=== PATIENT | female | born 1985 | race Two or more races ===

== ENCOUNTER → 2024-07-26 | Outpatient (CLI) | payer BC, SELFPAY ==
[2024-07-26 12:41] LABS: Beta HCG,Quantitative 35299 mIU/mL (<5.0)
[2024-08-06 07:00] LABS: Progesterone,LC/MS* 35.2 ng/mL
== END | disposition home or self-care (01) ==
PROVIDERS: PCP Family Medicine; Referring Provider Nurse Practitioner Family; Visit Provider Nurse Practitioner Family
DX: Z32.01 Encounter for pregnancy test, result positive (principal)
CPT/HCPCS: 36415; 84144; 84702

== ENCOUNTER → 2024-08-08 | Outpatient (CLI) | payer BC, SELFPAY ==
[2024-08-08 12:18] LABS: HCG Titer if Positive Positive
[2024-08-08 13:30] LABS: Beta HCG,Quantitative 97177 mIU/mL (<5.0)
[2024-08-21 06:38] LABS: Progesterone,LC/MS* 61.7 ng/mL
== END | disposition home or self-care (01) ==
LOC: COPL 11:18
PROVIDERS: PCP Nurse Practitioner Family; Referring Provider Nurse Practitioner Family; Visit Provider Nurse Practitioner Family
DX: Z32.01 Encounter for pregnancy test, result positive (principal)
CPT/HCPCS: 36415; 84144; 84702; 84703

== ENCOUNTER → 2024-08-10 | Outpatient (CLI) | payer BC, SELFPAY ==
[2024-08-10 12:12] LABS: HCG Titer if Positive Positive
[2024-08-10 13:01] LABS: Beta HCG,Quantitative 101773 mIU/mL (<5.0)
[2024-08-28 06:40] LABS: Progesterone,LC/MS* 42.1 ng/mL
== END | disposition home or self-care (01) ==
LOC: COPL 11:18
PROVIDERS: PCP Nurse Practitioner Family; Referring Provider Nurse Practitioner Family; Visit Provider Nurse Practitioner Family
DX: Z32.01 Encounter for pregnancy test, result positive (principal)
CPT/HCPCS: 36415; 84144; 84702; 84703

== ENCOUNTER 2024-08-20 11:16 | Outpatient (AMB) | payer BC, SELFPAY ==
[2024-08-20 11:23] VITALS: BP 134/87; PULSE 87; RESP 16; TEMP 36.3; O2SAT 97; BMI 40.2
--- NOTE | 2024-08-20 11:23 | AMB.OBINITIA ---
Vital Signs 08/20/24 11:23 Height 1.52 m Height Method Stated Weight 93.497 kg Weight Measurement Method Standing Scale BMI 40.2 BP 134/87 H Blood Pressure Source Automatic Cuff Blood Pressure Location Left Upper Arm Position Sitting Respiration 16 Pulse 87 Pulse Source Monitor Temp 97.4 F Temp Source Oral Pulse Oximetry (%) 97 Oxygen Delivery Method Room Air Allergies/Home Meds Allergies & Medications Allergies No Known Allergies Allergy (Verified 08/20/24 11:24) Medication Reconciliation Unobtainable 08/20/24 [History Confirmed 08/20/24] Intake Visit Data Collection New Patient or Established: Established Patient (seen at [facility] within 3 years) Reason for Visit:: IVF establish care Seen by Clinical Staff ONLY (RN/MA): No Resolution Expert Required: No Do You Feel Safe at Home: Yes Authorities Contacted: N/A PCP or OBGYN visit in last 3 months: Yes Hx Now: Yes Are you currently on any form of Control: No Last menstrual period: 06/09/25 Pain Present Currently: No Pain Scale Used: [place]/Numerical Pain scale:: 0 Smoking Status Smoking Status: Never smoker Questionnaires Covid-19 Vaccine Questionnaire Has patient been vacinated for Covid-19 Have you been vacinated for Covid-19: Yes PHQ-9 PHQ-2 Over the last 2 weeks, how often have you been bothered by any of the following problems? 1. Little interest or pleasure in doing things: not at all 2. Feeling down, depressed, or hopeless: not at all Total score: 0 PHQ-9 3. Trouble falling or staying asleep, or sleeping too much: Not at all 4. Feeling tired or having little energy: Not at all 5. Poor appetite or overeating: Not at all 6. Feeling bad about yourself - or that you are a failure or have let yourself or your family down: Not at all 7. Trouble concentrating on things, such as reading the newspaper or watching television: Not at all 8. Moving or speaking so slowly that other people could have noticed? - Or the opposite - being so fidgety or restless that you have been moving around a lot more than usual: not at all 9. Thoughts that you would be better off or of hurting yourself in some way: Not at all Total score: 0 Source: Developed by Drs. Az Melara, Ankita Wheeler, William Alves and colleagues, with an educational robert from [email or web address]. Depression screen completed yes Social History Living Situation History Lives With: Family Housing: House Tobacco History Smoking Status: Never smoker Second Hand Smoke Exposure: No Alcohol History Alcohol Intake: Former Alcohol Intake Frequency: holidays/special occasions only Substance Use History Substance Use: no Domestic Abuse History Do You Feel Safe at Home: Yes Past Medical History Past Medical History Have you ever been diagnosed with any of the following: Neurological Problems Cerebrovascular Accident (CVA): No Transient Ischemic Attacks (TIA): No Dementia: No Alzheimer's Disease: No Parkinson's Disease: No Brain Tumor: No Meningitis: No Seizures: No Epilepsy: No Guillain-[place] Syndrome: No Cardiology Problems Myocardial Infarction: No Cardiac Arrhythmia: No Hypertension: Yes (Father) Respiratory Problems Asthma: Yes Bronchitis: No Emphysema: No Pneumonia: No Pulmonary Fibrosis: No Tuberculosis: No Hx Cough: No Cough: No Wheezing: No Chest Deformities: No Smoking: No Smoking Cessation Counseling: No Smoking Exposure: No Tobacco Use: No Stomache/Intestinal Problems Liver Cancer: No Hepatitis: No Cirrhosis: No Genital/Urinary Problems Chronic Kidney Disease: No Renal Disease: No Kidney Stones: No Prostate Cancer: Yes (Father ) Reproductive Problems Breast Cancer: Yes (grandmother) Endometriosis: No Fibroids: No Genital Herpes: No Musculoskeletal Problems Muscular Dystrophy: No Myasthenia Gravis: No Marfan's Syndrome: No Bone Cancer: No Arthritis: No Rheumatoid Arthritis: No Osteoporosis: No Head,Eye,Nose,Throat Problems Cataracts: No Glaucoma: No Blind: No Retinal Detachment: No Macular Degeneration: No Chronic Ear Infections: No Deafness: No Eye Prosthesis: No Endocrine Problems Diabetes Mellitus Type 1: No Diabetes Mellitus Type 2: No Blood Problems Anemia: No Leukemia: No Hemophilia: No Thalassemia: No Sickle Cell Disease: No Clotting Problems: No Psychologic Problems Schizophrenia: No Recreational Drug Use: No Bipolar Disorder: No Depression: No Anxiety: No Behavior Problems: No Self-Mutilation: No Attention Deficit Disorder: No Attention Deficit Hyperactivity Disorder: No Depression: No Post Traumatic Stress Disorder: No Eating Disorder: No Other Problems Hospitalization: No Autoimmune Disease: No Down Syndrome: No Cosmetic Surgery: No Surgical History Angioplasty: No Appendectomy: No Bariatric Surgery: No Breast Surgery: No Cancer Surgery: No TAHBSO-Total Abdominal Hysterectomy: No Thyroidectomy: No Ureter Stent: No History of Present Illness HPI Sahra Stuart presents for care. Patient was seen in the emergency room on 07-26-2024, at approximately 6 weeks gestation[place] [address], and ultrasound showed a single intrauterine gestation of approximately 7 weeks, with a subchorionic hemorrhage and a right ovarian corpus luteum cyst. Repeat serum hCG after the visit on 07-26-2024 was 21937. On 08-06-2024, progesterone level was 35.2 mg/mL. Ultrasound on 07-24-2024 showed the uterus measuring 6.2 x 5.8 x 5.4 cm, mean gestational sac diameter of 20.5 mm corresponding to 7 weeks, CRL measured 3.8 mm corresponding to 6 weeks, heart rate 125 bpm. Right ovary was 3.7 x 2.4 x 1.8 cm with a 2 cm corpus luteum cyst. Left ovary was 2.9 x 2.6 x 2.3 cm. Estimated gestation today is 9 weeks and 6 days, with an estimated due date of 03-19-2025. Patient reports spotting has significantly slowed down in the last four days, only occurring with bowel movements. No cramping unless needing to use the restroom. No morning sickness, but occasional nausea since switching from progesterone injections to pills. IVF was done in [place]. Last week's ultrasound showed 9 weeks gestation, with heart rate of 169 bpm. Patient is currently taking folic acid and baby aspirin. Surgical History - IVF (In Vitro Fertilization) performed in [place] Medications and Supplements - folic acid - Baby aspirin - Progesterone (previously injections, now pills) Social History - Marital status: Patient has a (mentioned in plan for next visit) - Family planning: Undergoing IVF treatment (performed in [place]) OB Initial Visit Menstrual History Menstrual reliability: definite Flow: normal Menstrual regularity: regular Monthly: Yes Age at menarche: 15 On control pills at conception: No Date of positive home test: 07/02/24 Associated symptoms (LMP): Reports nausea and other (spotting) OB History : 1 Para: 0 Hx # Pregnancies: 0 Hx Total # of Abortions (Spontaneous & Elective): 0 # of Living Children: 0 Infection History & Risk Evaluation History of STDs: none Genetic Screening & History Genetic Screening/Teratology Counseling - Includes patient, baby's father, or anyone in either family with: 1. Patient's age 35 years or older as of estimated date of delivery: Yes 2. Thalassemia (Ukrainian, Malagasy, Mediterranean, or Background); MCV less than 80: No 3. Neural Tube Defect (Meningomyelocele, Spina Bifida, or Anencephaly): No 4. Congenital Heart Defect: No 5. Down Syndrome: No 6. Serg-Sachs (Ashkenazi Mu-Ism, Cajun, Mongolian [place]): No 7. Hong Disease (Ashkenazi Mu-Ism): No 8. Familial Dysautonomia (Ashkenazi Mu-Ism): No 9. Sickle Cell Disease or Trait (): No 10. Hemophilia or other blood disorders: No 11. Muscular Dystrophy: No 12. Cystic Fibrosis: No 13. [place]'s Chorea: No 14. Mental Retardation/Autism: No 15. Other inherited genetic or chromosomal disorder: No 16. Maternal Metabolic Disorder (EG,TYPE 1 Diabetes, PKU): No 17. Patient or baby's father had a child with defects not listed above: No 18. Recurrent loss or a stillbirth: No 19. Medications (including supplements, vitamins, herbs or otc drugs)/illicit/recreational drugs/alcohol since last menstrual period: No 20. Any other: No Infection History 1. Live with someone with TB or exposed to TB: No 2. Rash or viral illness since last menstrual period: No 3. Hepatitis B,C: No Other (see comments) Source: [employer] Review of Systems Review of Systems Systems Reviewed: All systems reviewed, normal except as documented Gastrointestinal Gastrointestinal: Reports nausea Exam General Limitations: no limitations General Appearance: alert, in no apparent distress, comfortable, cooperative, healthy appearing, well developed and well groomed Head Head exam: atraumatic, normocephalic and normal inspection Neck Neck exam: Present normal inspection, full ROM and trachea midline Chest Chest inspection: Present normal inspection and symmetric chest wall rise Abdominal Abdominal exam: Present soft and normal bowel sounds Extremities Extremities exam: Present normal inspection and full ROM Back Back exam: Present normal inspection and full ROM Psych Psychiatric exam: Present normal affect and normal mood Skin Skin exam: Present warm, dry, intact and normal color Assessment & Plan Diagnosis / Problem List (1) conceived through in vitro fertilization: Status: Acute Plan: Laboratory, Imaging, and Diagnostic Test Results - Serum hCG on 07-26-2024: 22751 - Repeat serum hCG after 07-26-2024 visit: 98980 - Progesterone level on 08-06-2024: 35.2 mg/mL - Ultrasound on 07-24-2024: - Uterus measuring 6.2 x 5.8 x 5.4 cm - Mean gestational sac diameter: 20.5 mm (corresponding to 7 weeks) - [place]-rump length (CRL): 3.8 mm (corresponding to 6 weeks) - heart rate: 125 bpm - Right ovary: 3.7 x 2.4 x 1.8 cm with a 2 cm corpus luteum cyst - Left ovary: 2.9 x 2.6 x 2.3 cm - Transvaginal ultrasound was consistent with above findings - Ultrasound at 9 weeks gestation: - heart rate: 169 bpm Assessment and Plan: Intrauterine Patient is a 9 weeks and 6 days with estimated due date of 03-19-2025. IVF conceived in [place]. Initial ER visit at 6 weeks gestation [place] [address], [place] [address] on repeat. Ultrasound at 7 weeks revealed single intrauterine gestation with subchorionic hemorrhage and right ovarian corpus luteum cyst. heart rate was 125 bpm at 7 weeks, increasing to 169 bpm at 9 weeks. Progesterone level was 35.2 mg/mL at 8 weeks. Patient reports decreased spotting, occurring only with bowel movements, and no cramping. Occasional nausea noted since switching from progesterone injections to pills. - Order full panel including genetic testing and gender determination (patient prefers gender revealed to someone else) - Continue folic acid and baby aspirin until delivery - Schedule 4-week follow-up appointment - Schedule 3-week follow-up appointment with ultrasound for patient's - Patient to bring copies of IVF ultrasounds at next visit for scanning Subchorionic hemorrhage Subchorionic hemorrhage was identified on initial ultrasound at 7 weeks gestation. Patient reports significant decrease in spotting over the past four days, now only occurring with bowel movements. No associated cramping reported unless needing to use the restroom. - Continue monitoring symptoms - Reassess at follow-up appointments Additional Plan Follow Up: 2 Weeks Office Procedures OB Clinic LOC & Office Proc's Nursing/Assessment Patient Status: Established Patient OB Clinic Nursing Assessment: Medication Reconciliation, Update PMH in EMR and Vital Signs OB Clinic Coordination of Care: AMA, Complex Care and Chronic Disease 1-5, Consent,records obtained, informed consent, Education Simp Pt/Fam, Lab and Imaging orders, Results/Orders obtained and Staff clarify orders Special Needs: Heart tones Established Patient Charge Established Patient Point Assignment: 155 Established Patient Point Charge: EP Level 4 (120-155)
== END 2024-08-20 13:53 | disposition home or self-care (01) ==
LOC: HODSOBC 11:16
PROVIDERS: PCP Nurse Practitioner Family; Referring Provider Nurse Practitioner Family; Supervising Provider Obstetrics & Gynecology; Visit Provider Obstetrics & Gynecology
DX: O26.91 Pregnancy related conditions, unspecified, first trimester (principal); Z3A.09 9 weeks gestation of pregnancy
CPT/HCPCS: 99214; G0463

== ENCOUNTER 2024-09-13 15:30 | Outpatient (AMB) | payer BC, SELFPAY ==
--- NOTE | 2024-09-13 15:47 | AMB.OBVISIT ---
Vital Signs 09/13/24 15:53 Height 1.52 m Height Method Stated Weight 91.399 kg Weight Measurement Method Standing Scale BMI 39.5 BP 129/83 Blood Pressure Source Automatic Cuff Blood Pressure Location Left Upper Arm Position Sitting Respiration 16 Pulse 105 H Pulse Source Monitor Temp 96.3 F L Temp Source Oral Pulse Oximetry (%) 98 Oxygen Delivery Method Room Air Allergies/Home Meds Allergies & Medications Allergies No Known Allergies Allergy (Verified 09/13/24 15:55) Medication Reconciliation Unobtainable 08/20/24 [History Confirmed 09/13/24] Intake Visit Data Collection New Patient or Established: Established Patient (seen at [facility] within 3 years) Reason for Visit:: OBC Seen by Clinical Staff ONLY (RN/MA): No Certified Pharmacist Assistant Required: No Do You Feel Safe at Home: Yes Authorities Contacted: N/A PCP or OBGYN visit in last 3 months: Yes Hx Now: Yes Are you currently on any form of Control: No Pain Present Currently: No Pain Scale Used: [place]/Numerical Pain scale:: 0 Smoking Status Smoking Status: Never smoker Questionnaires Covid-19 Vaccine Questionnaire Has patient been vacinated for Covid-19 Have you been vacinated for Covid-19: Yes PHQ-9 PHQ-2 Over the last 2 weeks, how often have you been bothered by any of the following problems? 1. Little interest or pleasure in doing things: not at all 2. Feeling down, depressed, or hopeless: not at all Total score: 0 PHQ-9 3. Trouble falling or staying asleep, or sleeping too much: Not at all 4. Feeling tired or having little energy: Not at all 5. Poor appetite or overeating: Not at all 6. Feeling bad about yourself - or that you are a failure or have let yourself or your family down: Not at all 7. Trouble concentrating on things, such as reading the newspaper or watching television: Not at all 8. Moving or speaking so slowly that other people could have noticed? - Or the opposite - being so fidgety or restless that you have been moving around a lot more than usual: not at all 9. Thoughts that you would be better off or of hurting yourself in some way: Not at all Total score: 0 If you checked off any problems, how difficult have these problems made it for you to do your work, take care of things at home, or get along with other people?: not difficult at all Source: Developed by Drs. Az Melara, Ankita Wheeler, William Alves and colleagues, with an educational robert from [employer]. Depression screen completed yes Social History Living Situation History Lives With: Family Housing: House Tobacco History Smoking Status: Never smoker Second Hand Smoke Exposure: No Alcohol History Alcohol Intake: Former Alcohol Intake Frequency: holidays/special occasions only Substance Use History Substance Use: no Domestic Abuse History Do You Feel Safe at Home: Yes Past Medical History Past Medical History Have you ever been diagnosed with any of the following: Neurological Problems Cerebrovascular Accident (CVA): No Transient Ischemic Attacks (TIA): No Dementia: No Alzheimer's Disease: No Parkinson's Disease: No Brain Tumor: No Meningitis: No Seizures: No Epilepsy: No Guillain-[place] Syndrome: No Cardiology Problems Myocardial Infarction: No Cardiac Arrhythmia: No Hypertension: Yes (Father) Respiratory Problems Asthma: Yes Bronchitis: No Emphysema: No Pneumonia: No Pulmonary Fibrosis: No Tuberculosis: No Hx Cough: No Cough: No Wheezing: No Chest Deformities: No Smoking: No Smoking Cessation Counseling: No Smoking Exposure: No Tobacco Use: No Stomache/Intestinal Problems Liver Cancer: No Hepatitis: No Cirrhosis: No Genital/Urinary Problems Renal Disease: No Kidney Stones: No Prostate Cancer: Yes (Father ) Reproductive Problems Breast Cancer: Yes (grandmother) Endometriosis: No Fibroids: No Genital Herpes: No Musculoskeletal Problems Muscular Dystrophy: No Myasthenia Gravis: No Marfan's Syndrome: No Bone Cancer: No Arthritis: No Rheumatoid Arthritis: No Osteoporosis: No Head,Eye,Nose,Throat Problems Cataracts: No Glaucoma: No Blind: No Retinal Detachment: No Macular Degeneration: No Chronic Ear Infections: No Deafness: No Eye Prosthesis: No Endocrine Problems Diabetes Mellitus Type 1: No Diabetes Mellitus Type 2: No Blood Problems Anemia: No Leukemia: No Hemophilia: No Thalassemia: No Sickle Cell Disease: No Clotting Problems: No Psychologic Problems Schizophrenia: No Recreational Drug Use: No Bipolar Disorder: No Depression: No Anxiety: No Behavior Problems: No Self-Mutilation: No Attention Deficit Disorder: No Attention Deficit Hyperactivity Disorder: No Depression: No Post Traumatic Stress Disorder: No Eating Disorder: No Other Problems Hospitalization: No Down Syndrome: No Cosmetic Surgery: No Surgical History Angioplasty: No Appendectomy: No Bariatric Surgery: No Breast Surgery: No Cancer Surgery: No TAHBSO-Total Abdominal Hysterectomy: No Thyroidectomy: No Ureter Stent: No History of Present Illness HPI Narrative The patient is and reports that her subchorionic hemorrhage has resolved. She previously underwent chromosome testing, which was reported as normal. The patient mentions difficulty staying hydrated while driving due to limited restroom access. She also notes that she had initially gone to the wrong [facility] location for blood work, where there was an issue with coding that was resolved over the phone. No CTX/LOF/VB, reports good FM+ Review of Systems Review of Systems Systems Reviewed: All systems reviewed, normal except as documented Visit KEVIN Calculator Estimated Delivery Date Method Current WG Current Estimate 03/16/25 Ultrasound #2 14w 6d Other Estimates 03/12/25 Ultrasound #1 15w 3d Initial Weight: Not Recorded Date <del>?</del> EGA Weight Edema CTX Effacement BP Fundal ht Pres Dilation Effacement Station Visit Note Alb Glu FHR Mov 09/13/24 <del>?</del> 13w 5d 91.399 kg 129/83 OB New visit. IVF . Labs pending 175 active Exam General Limitations: no limitations General Appearance: alert, in no apparent distress, comfortable, cooperative, healthy appearing, well developed and well groomed Chest Chest inspection: Present normal inspection and symmetric chest wall rise Psych Psychiatric exam: Present normal affect and normal mood Skin Skin exam: Present warm, dry, intact and normal color Assessment & Plan Diagnosis / Problem List (1) Advanced maternal age, primigravida: Status: Acute (2) conceived through in vitro fertilization: Status: Acute Plan Patient is in her second trimester of . Previous subchorionic hemorrhage has resolved. Recent NIPT (non-invasive testing) results were normal. Ultrasound showed a normal, round gestational sac with good heart rate. Placenta and amniotic fluid appear normal. - Continue vitamins and aspirin - Discontinue folic acid supplementation at 20 weeks gestation - Schedule detailed anatomy ultrasound. - Complete blood panel through [employer] [facility] - Follow-up appointment in 4 weeks Office Procedures OB Clinic LOC & Office Proc's Nursing/Assessment Patient Status: Established Patient OB Clinic Nursing Assessment: BP Monitoring, Medication Reconciliation, Update PMH in EMR and Vital Signs OB Clinic Coordination of Care: Consent,records obtained, informed consent, Education Simp Pt/Fam, Lab and Imaging orders and Staff clarify orders Special Needs: Heart tones Established Patient Charge Established Patient Point Assignment: 120 Established Patient Point Charge: EP Level 4 (120-155)
[2024-09-13 15:53] VITALS: BP 129/83; PULSE 105; RESP 16; TEMP 35.7; O2SAT 98; BMI 39.5
== END 2024-09-13 16:04 | disposition home or self-care (01) ==
LOC: HODSOBC 15:30
PROVIDERS: PCP Obstetrics & Gynecology; Referring Provider Obstetrics & Gynecology; Supervising Provider Obstetrics & Gynecology; Visit Provider Obstetrics & Gynecology
DX: O09.511 Supervision of elderly primigravida, first trimester (principal); O09.811 Supervision of pregnancy resulting from assisted reproductive technology, first trimester; Z3A.13 13 weeks gestation of pregnancy
CPT/HCPCS: 99214; G0463

== ENCOUNTER 2024-10-15 09:51 | Outpatient (AMB) | payer BC, SELFPAY ==
[2024-10-15 10:09] VITALS: BP 126/88; PULSE 88; RESP 18; TEMP 36.2; O2SAT 98; BMI 40.5
--- NOTE | 2024-10-15 10:09 | OBCLNT_ITS ---
Vital Signs 10/15/24 10:09 Height 1.52 m Height Method Stated Weight 93.667 kg Weight Measurement Method Standing Scale BMI 40.5 BP 126/88 H Blood Pressure Source Automatic Cuff Blood Pressure Location Left Upper Arm Position Sitting Respiration 18 Pulse 88 Pulse Source Monitor Temp 97.2 F Temp Source Oral Pulse Oximetry (%) 98 Oxygen Delivery Method Room Air Allergies/Home Meds Allergies & Medications Allergies No Known Allergies Allergy (Verified 10/15/24 10:10) Medication Reconciliation Unobtainable 08/20/24 [History Confirmed 10/15/24] Intake Visit Data Collection New Patient or Established: Established Patient (seen at [facility] within 3 years) Reason for Visit:: - care visit at 19 weeks gestation - Sciatic nerve pain on right side for the past week - Numbness and current passing sensation in leg when getting off truck - Occasional numbness in fingers Seen by Clinical Staff ONLY (RN/MA): No Client Success Manager Required: No Do You Feel Safe at Home: Yes Authorities Contacted: N/A PCP or OBGYN visit in last 3 months: Yes Date of Last PCP or OBGYN visit: 09/13/24 Hx Now: No Are you currently on any form of Control: No Pain Present Currently: No Pain Scale Used: [place]/Numerical Pain scale:: 0 Smoking Status Smoking Status: Never smoker Questionnaires Covid-19 Vaccine Questionnaire Has patient been vacinated for Covid-19 Have you been vacinated for Covid-19: Yes PHQ-9 PHQ-2 Over the last 2 weeks, how often have you been bothered by any of the following problems? 1. Little interest or pleasure in doing things: not at all 2. Feeling down, depressed, or hopeless: not at all Total score: 0 PHQ-9 3. Trouble falling or staying asleep, or sleeping too much: Not at all 4. Feeling tired or having little energy: Not at all 5. Poor appetite or overeating: Not at all 6. Feeling bad about yourself - or that you are a failure or have let yourself or your family down: Not at all 7. Trouble concentrating on things, such as reading the newspaper or watching television: Not at all 8. Moving or speaking so slowly that other people could have noticed? - Or the opposite - being so fidgety or restless that you have been moving around a lot more than usual: not at all 9. Thoughts that you would be better off or of hurting yourself in some way: Not at all Total score: 0 If you checked off any problems, how difficult have these problems made it for you to do your work, take care of things at home, or get along with other people?: not difficult at all Source: Developed by Drs. Az Melara, Ankita Wheeler, William Alves and colleagues, with an educational robert from [employer]. Depression screen completed yes Social History Living Situation History Lives With: Family Housing: House Tobacco History Smoking Status: Never smoker Second Hand Smoke Exposure: No Alcohol History Alcohol Intake: Former Alcohol Intake Frequency: holidays/special occasions only Substance Use History Substance Use: no Domestic Abuse History Do You Feel Safe at Home: Yes Past Medical History Past Medical History Have you ever been diagnosed with any of the following: Neurological Problems Cerebrovascular Accident (CVA): No Transient Ischemic Attacks (TIA): No Dementia: No Alzheimer's Disease: No Parkinson's Disease: No Brain Tumor: No Meningitis: No Seizures: No Epilepsy: No Guillain-Buskirk Syndrome: No Cardiology Problems Myocardial Infarction: No Cardiac Arrhythmia: No Hypertension: Yes (Father) Respiratory Problems Asthma: Yes Bronchitis: No Emphysema: No Pneumonia: No Pulmonary Fibrosis: No Tuberculosis: No Hx Cough: No Cough: No Wheezing: No Chest Deformities: No Smoking: No Smoking Cessation Counseling: No Smoking Exposure: No Tobacco Use: No Stomache/Intestinal Problems Liver Cancer: No Hepatitis: No Cirrhosis: No Genital/Urinary Problems Renal Disease: No Kidney Stones: No Reproductive Problems Breast Cancer: Yes (grandmother) Endometriosis: No Fibroids: No Genital Herpes: No Musculoskeletal Problems Muscular Dystrophy: No Myasthenia Gravis: No Marfan's Syndrome: No Bone Cancer: No Arthritis: No Rheumatoid Arthritis: No Osteoporosis: No Head,Eye,Nose,Throat Problems Cataracts: No Glaucoma: No Blind: No Retinal Detachment: No Macular Degeneration: No Chronic Ear Infections: No Deafness: No Eye Prosthesis: No Endocrine Problems Diabetes Mellitus Type 1: No Diabetes Mellitus Type 2: No Blood Problems Anemia: No Leukemia: No Hemophilia: No Thalassemia: No Sickle Cell Disease: No Clotting Problems: No Psychologic Problems Schizophrenia: No Recreational Drug Use: No Bipolar Disorder: No Depression: No Anxiety: No Behavior Problems: No Self-Mutilation: No Attention Deficit Disorder: No Attention Deficit Hyperactivity Disorder: No Depression: No Post Traumatic Stress Disorder: No Eating Disorder: No Other Problems Hospitalization: No Down Syndrome: No Cosmetic Surgery: No Surgical History Angioplasty: No Appendectomy: No Bariatric Surgery: No Breast Surgery: No Cancer Surgery: No TAHBSO-Total Abdominal Hysterectomy: No Thyroidectomy: No Ureter Stent: No History of Present Illness HPI Narrative - Martha Stuart is a 39-year-old presenting for care at 19 weeks gestation. This was conceived through in vitro fertilization (IV F) in [place]. - Patient reports fatigue. 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 - She denies any other symptoms or complications related to the . No contractions/ LOF/VB, reports good FM No BELTRE/VC/RUQ/Epig pain Care OB Visit Log OB Flowsheet Initial Weight: Not Recorded Date -?-?-?-?-?-?-?-?-?-?-?-?- EGA Weight Edema CTX Effacement BP Fundal ht Pres Dilation Effacement Station Visit Note Alb Glu FHR Mov 09/13/24 -?-?-?-?-?-?-?-?-?-?-?-?- 13w 5d 91.399 kg 129/83 OB N ew visit. IVF . Labs pending 175 active 10/15/24 -?-?-?-?-?-?-?-?-?-?-?-?- 18w 2d 93.667 kg 126/88 April Stuart, 39 y/o at 19w0d gestation following IVF in [place], presents for routine visit. Reports right- sided sciatica with numbness and ?electric? 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 Subchorionic hemorrhage from early now resolved. Denies CTX/LOF/VB; reports good FM. FHR 138 bpm. Blood type A+, Ab screen negative, Hgb 11.8, plt 311,000. Rubella immune, OB labs normal. Plan: Follow-up in 4 weeks at 24w for GT T and review anatomy scan results (pending call from [facility]). Reassurance and supportive care for sciatica and neck symptoms: rest, neck ROM, warm/cold compress. Continue routine care and safety counseling. 1 45 active KEVIN Calculator Estimated Delivery Date Method Current WG Current Estimate 03/16/25 Ultrasound #2 18w 3d Other Estimates 03/12/25 Ultrasound #1 19w 0d Exam General General Appearance: alert, in no apparent distress and healthy appearing Head Head exam: atraumatic Neck Neck exam: Present normal inspection and trachea midline Chest Chest inspection: Present normal inspection and symmetric chest wall rise External exam: Present normal external exam; Absent tenderness Neuro Neurological exam: Present oriented X3 Psych Psychiatric exam: Present normal affect and normal mood Assessment & Plan Diagnosis / Problem List (1) Advanced maternal age, primigravida: Status: Acute (2) conceived through in vitro fertilization: Status: Acute Plan Problem List - , 19 weeks gestation - Sciatica - Cervical radiculopathy - Round ligament pain Assessment - Intrauterine at 19 weeks gestation - History of subchorionic hemorrhage, now resolved - conceived through IVF - Sciatic nerve pain on right side - Cervical spine-related numbness and tingling in fingers - Round ligament pain - heart rate 138 bpm - Blood type A positive - Negative antibody screen - Hemoglobin 11.8 g/dL - Platelets 311,000/?L - Negative RPR, Hepatitis B, and HIV tests - Rubella immune - Normal OB panel results Plan - Return for follow-up appointment in 4 weeks at 24 weeks gestation - Order glucose tolerance test (diabetes test) for next visit - Await call from [facility] for Level 2 Anatomy Ultrasound (detailed ultrasound) - For cervical spine discomfort: perform neck rotation exercises and apply warm/cold compresses - For sciatic nerve pain: rest when symptoms occur - Continue current care regimen Educated the patient on labor signs, including regular contractions, lower back pain, and changes in vaginal discharge. Advised avoiding heavy lifting and getting adequate rest. Instructed to contact the office immediately if any signs occur. Discussed the importance of a balanced diet rich in folic acid, iron, and calcium, and provided a list of recommended and to-avoid foods. Emphasized avoiding high-sugar foods to reduce gestational diabetes risk. Encouraged hydration and frequent, small meals for energy.. Office Procedures OB Clinic LOC & Office Proc's Nursing/Assessment Patient Status: Established Patient OB Clinic Nursing Assessment: Medication Reconciliation, Update PMH in EMR and Vital Signs OB Clinic Coordination of Care: Consent,records obtained, informed consent, Lab and Imaging orders and Staff clarify orders Special Needs: Heart tones Established Patient Charge Established Patient Point Assignment: 90 Established Patient Point Charge: EP Level 3 (80-115)
== END 2024-10-15 10:30 | disposition home or self-care (01) ==
LOC: HODSOBC 09:51
PROVIDERS: PCP Obstetrics & Gynecology; Referring Provider Obstetrics & Gynecology; Supervising Provider Obstetrics & Gynecology; Visit Provider Obstetrics & Gynecology
DX: O09.512 Supervision of elderly primigravida, second trimester (principal); Z3A.18 18 weeks gestation of pregnancy; O09.812 Supervision of pregnancy resulting from assisted reproductive technology, second trimester; O99.352 Diseases of the nervous system complicating pregnancy, second trimester; M54.31 Sciatica, right side; O99.891 Other specified diseases and conditions complicating pregnancy; M54.12 Radiculopathy, cervical region; R10.2 Pelvic and perineal pain
CPT/HCPCS: 99213; G0463

== ENCOUNTER 2024-11-15 13:37 | Outpatient (AMB) | payer BC, SELFPAY ==
[2024-11-15 13:42] VITALS: BP 141/97; PULSE 97; RESP 18; TEMP 36.6; O2SAT 96; BMI 40.9
--- NOTE | 2024-11-15 13:42 | AMB.OBVISIT ---
Vital Signs 11/15/24 13:42 Height 1.52 m Height Method Stated Weight 94.574 kg Weight Measurement Method Standing Scale BMI 40.9 BP 141/97 H Blood Pressure Source Automatic Cuff Blood Pressure Location Right Upper Arm Position Sitting Respiration 18 Pulse 97 Pulse Source Monitor Temp 97.8 F Temp Source Oral Pulse Oximetry (%) 96 Oxygen Delivery Method Room Air Allergies/Home Meds Allergies & Medications Allergies No Known Allergies Allergy (Verified 11/15/24 13:43) Medication Reconciliation Unobtainable 08/20/24 [History Confirmed 11/15/24] Intake Visit Data Collection New Patient or Established: Established Patient (seen at [facility] within 3 years) Reason for Visit:: CARE Seen by Clinical Staff ONLY (RN/MA): No Building Repair Maintenance Supervisor Required: No Do You Feel Safe at Home: Yes Authorities Contacted: N/A PCP or OBGYN visit in last 3 months: Yes Hx Now: Yes Are you currently on any form of Control: No Pain Present Currently: Yes Pain Location: Arm (BILATERAL) Pain Scale Used: [place]/Numerical Pain scale:: 4 Smoking Status Smoking Status: Never smoker Questionnaires Covid-19 Vaccine Questionnaire Has patient been vacinated for Covid-19 Have you been vacinated for Covid-19: Yes PHQ-9 PHQ-2 Over the last 2 weeks, how often have you been bothered by any of the following problems? 1. Little interest or pleasure in doing things: not at all 2. Feeling down, depressed, or hopeless: not at all Total score: 0 PHQ-9 3. Trouble falling or staying asleep, or sleeping too much: Not at all 4. Feeling tired or having little energy: Not at all 5. Poor appetite or overeating: Not at all 6. Feeling bad about yourself - or that you are a failure or have let yourself or your family down: Not at all 7. Trouble concentrating on things, such as reading the newspaper or watching television: Not at all 8. Moving or speaking so slowly that other people could have noticed? - Or the opposite - being so fidgety or restless that you have been moving around a lot more than usual: not at all 9. Thoughts that you would be better off or of hurting yourself in some way: Not at all Total score: 0 Source: Developed by Drs. Az Melara, Ankita Wheeler, William Alves and colleagues, with an educational robert from [employer]. 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 Patient reports good FM. Denies BELTRE, VC, and epigastric pain. - Martha Stuart is a 39-year-old female, , with a history of IVF , presenting for care at 22 weeks and 5 days gestation. - Patient reports feeling movements - Describes as scratches from inside and like gas in the stomach - Ongoing neck pain and cervical radiculopathy since last visit - Aggravated by driving - Symptoms include: - Difficulty opening and closing hands, especially in the mornings - Pain radiating to shoulder blade on one side, to elbow on the other - Wakes patient up during sleep - Alleviating factors: running hands under hot water in shower - Patient unsure about work plans for remainder of - Considering options for disability leave due to high-risk IVF Care OB Visit Log OB Flowsheet Initial Weight: Not Recorded Date <del>?</del> EGA Weight BP Alb Glu CTX Pres Fundal ht FHR Mov Dilation Station Effacement Hx Notes Visit Note 09/13/24 <del>?</del> 13w 5d 91.399 kg 129/83 175 active OB New visit. IVF . Labs pending 10/15/24 <del>?</del> 18w 2d 93.667 kg 126/88 145 active Martha Stuart, 39 y/o at 19w0d gestation following IVF in [place], presents for routine visit. 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 Subchorionic hemorrhage from early now resolved. Denies CTX/LOF/VB; reports good FM. FHR 138 bpm. Blood type A+, Ab screen negative, Hgb 11.8, plt 311,000. Rubella immune, OB labs normal. Plan: Follow-up in 4 weeks at 24w for GTT and review anatomy scan results (pending call from [facility]). Reassurance and supportive care for sciatica and neck symptoms: rest, neck ROM, warm/cold compress. Continue routine care and safety counseling. 11/15/24 <del>?</del> 22w 5d 94.574 kg 141/97 155 active 39yo @22w5d, IVF, good FM, ongoing cervical radiculopathy with hand/arm pain, FHT 155?160 bpm. Plan: 1hr glucose today, anatomy scan pending insurance, neck exercises, consider disability leave, PT and MRI , f/u in 2 weeks. KEVIN Calculator Estimated Delivery Date Method Current WG Current Estimate 03/16/25 Ultrasound #2 24w 4d Other Estimates 03/12/25 Ultrasound #1 25w 1d Exam General General Appearance: alert, in no apparent distress and healthy appearing Head Head exam: atraumatic Neck Neck exam: Present normal inspection and trachea midline Chest Chest inspection: Present normal inspection and symmetric chest wall rise External exam: Present normal external exam; Absent tenderness Neuro Neurological exam: Present oriented X3 Psych Psychiatric exam: Present normal affect and normal mood Office Procedures OB Clinic LOC & Office Proc's Nursing/Assessment Patient Status: Established Patient OB Clinic Nursing Assessment: Medication Reconciliation, Update PMH in EMR and Vital Signs OB Clinic Coordination of Care: Complex Care and Chronic Disease 1-5, Consent,records obtained, informed consent, Education Simp Pt/Fam, Lab and Imaging orders, Results/Orders obtained and Staff clarify orders Special Needs: Heart tones Established Patient Charge Established Patient Point Assignment: 135 Established Patient Point Charge: EP Level 4 (120-155) Assessment & Plan Diagnosis / Problem List (1) Advanced maternal age, primigravida: Status: Acute (2) conceived through in vitro fertilization: Status: Acute Plan Problem List - , high-risk - Cervical radiculopathy - Spinal cord compression Assessment 39-year-old at 22 weeks 5 days gestation with IVF presenting for routine care. Patient reports movement. Ongoing cervical radiculopathy with bilateral hand and arm pain, worse on the right side extending to the shoulder blade, left side to the elbow. Symptoms are exacerbated by driving and present upon waking. Morning hand stiffness reported, requiring warm water for relief. These symptoms suggest possible spinal cord compression. heart rate noted at 155-160 bpm, which is within normal range. Glucose tolerance test pending. Anatomy scan results still awaited due to insurance communication issues. Plan - Perform glucose test today (patient to fast for at least 8 hours prior) - Schedule anatomy scan (pending insurance approval) - Patient to consider disability leave options due to high-risk IVF - Clinician to complete disability paperwork as needed - Recommend simple neck exercises (shrugs, rotations, extensions) multiple times daily for cervical radiculopathy - Plan for intensive physical therapy and possible MRI after delivery - Follow-up visit in a couple of weeks for ultrasound 1. Progress Reviewed gestational age, growth, and heart rate. Planned frequent visits (every 2 weeks until 36 weeks, then weekly). 2. Instructed patient to monitor movements and report decreases immediately. 3. Testing Counseled on routine third-trimester labs per guidelines. Discussed potential need for ultrasound or monitoring based on risk factors. 4. Preeclampsia Precaution Educated on preeclampsia signs: severe headache, vision changes, right upper quadrant pain, sudden swelling. Advised urgent reporting of symptoms and discussed blood pressure monitoring if high risk. 5. Labor Precautions Reviewed labor signs: regular contractions, pelvic pressure, back pain, bleeding, or fluid leakage. Instructed to seek immediate care for these symptoms. 6. Lifestyle and Delivery Preparation Reinforced vitamins, nutrition, and safe activity. Discussed plan, pain management, and . Advised on labor preparation (e.g., hospital bag) and expectations. 7. Psychosocial Support Assessed emotional well-being and offered resources for mental health or parenting support.
== END 2024-11-15 14:24 | disposition home or self-care (01) ==
LOC: HODSOBC 13:37
PROVIDERS: PCP Obstetrics & Gynecology; Referring Provider Obstetrics & Gynecology; Supervising Provider Obstetrics & Gynecology; Visit Provider Obstetrics & Gynecology
DX: O09.512 Supervision of elderly primigravida, second trimester (principal); O09.812 Supervision of pregnancy resulting from assisted reproductive technology, second trimester; Z3A.22 22 weeks gestation of pregnancy; O09.892 Supervision of other high risk pregnancies, second trimester; O99.891 Other specified diseases and conditions complicating pregnancy; M54.12 Radiculopathy, cervical region; G95.20 Unspecified cord compression
CPT/HCPCS: 99214; G0463

== ENCOUNTER → 2024-11-16 | Outpatient (CLI) | payer BC, SELFPAY ==
[2024-11-16 13:31] LABS: Glucose, Fasting 84 mg/dL (74-106)
[2024-11-16 13:37] LABS: Glucose 1/2 Hour 130 mg/dL (110-170)
[2024-11-16 14:21] LABS: Glucose 1 Hour 177 mg/dL (120-170)
== END | disposition home or self-care (01) ==
PROVIDERS: PCP Nurse Practitioner Family; Referring Provider Obstetrics & Gynecology; Visit Provider Obstetrics & Gynecology
DX: O09.519 Supervision of elderly primigravida, unspecified trimester (principal); O09.819 Supervision of pregnancy resulting from assisted reproductive technology, unspecified trimester
CPT/HCPCS: 36415; 82951

== ENCOUNTER 2024-11-30 13:09 | Outpatient (AMB) | payer BC, SELFPAY ==
--- NOTE | 2024-11-30 13:13 | AMB.OBVISIT ---
Vital Signs 11/30/24 13:14 Height 1.52 m Height Method Measured Weight 94.461 kg Weight Measurement Method Standing Scale BMI 40.8 BP 132/84 H Blood Pressure Source Automatic Cuff Blood Pressure Location Right Upper Arm Position Sitting Respiration 17 Pulse 100 Pulse Source Monitor Temp 97.3 F Temp Source Temporal Artery Scan Pulse Oximetry (%) 96 Oxygen Delivery Method Room Air Allergies/Home Meds Allergies & Medications Allergies No Known Allergies Allergy (Verified 12/18/24 14:41) Medication Reconciliation blood sugar diagnostic (Blood Glucose Test strips) #10 ea 11/30/24 [Rx Confirmed 12/18/24] blood-glucose meter #1 ea 11/30/24 [Rx Confirmed 12/18/24] folic acid 0.8 mg capsule 0.8 mg PO QDAY 11/30/24 [History Confirmed 12/18/24] lancets #100 ea 11/30/24 [Rx Confirmed 12/18/24] vits no.126-ferrous fum 28 mg iron-folic acid 800 mcg tablet (Classic ) tab PO 11/30/24 [History Confirmed 12/18/24] Intake Visit Data Collection New Patient or Established: Established Patient (seen at [facility] within 3 years) Reason for Visit:: OBC Seen by Clinical Staff ONLY (RN/MA): No 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 1. Little interest or pleasure in doing things: not at all 2. Feeling down, depressed, or hopeless: not at all Total score: 0 PHQ-9 3. Trouble falling or staying asleep, or sleeping too much: Not at all 4. Feeling tired or having little energy: Not at all 5. Poor appetite or overeating: Not at all 6. Feeling bad about yourself - or that you are a failure or have let yourself or your family down: Not at all 7. Trouble concentrating on things, such as reading the newspaper or watching television: Not at all 8. Moving or speaking so slowly that other people could have noticed? - Or the opposite - being so fidgety or restless that you have been moving around a lot more than usual: not at all 9. Thoughts that you would be better off or of hurting yourself in some way: Not at all Total score: 0 If you checked off any problems, how difficult have these problems made it for you to do your work, take care of things at home, or get along with other people?: not difficult at all Source: Developed by Drs. Az Melara, Ankita Wheeler, William Alves and colleagues, with an educational robert from [employer]. 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 IVF . Labs pending 10/15/24 <del>?</del> 18w 2d 93.667 kg 126/88 145 active Martha Stuart, 39 y/o at 19w0d gestation following IVF in [place], presents for routine visit. 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 Subchorionic hemorrhage from early now resolved. Denies CTX/LOF/VB; reports good FM. FHR 138 bpm. Blood type A+, Ab screen negative, Hgb 11.8, plt 311,000. Rubella immune, OB labs normal. Plan: Follow-up in 4 weeks at 24w for GTT and review anatomy scan results (pending call from [facility]?s). Reassurance and supportive care for sciatica and neck symptoms: rest, neck ROM, warm/cold compress. Continue routine care and safety counseling. 11/15/24 <del>?</del> 22w 5d 94.574 kg 141/97 155 active 39yo @22w5d, IVF, good FM, ongoing cervical radiculopathy with hand/arm pain, FHT 155?160 bpm. Plan: 1hr glucose today, anatomy scan pending insurance, neck exercises, consider disability leave, PT and MRI , f/u in 2 weeks. 11/30/24 <del>?</del> 24w 6d 94.461 kg 132/84 occasional cephalic 24 142 active at 24w6d via IVF, elevated 1hr GTT 177, likely GDM. Has carpal tunnel, on disability. FHR 142, good FM. Plan: Start home glucose checks (fasting <100, 1hr post-meal <140), supplies to pharmacy. Anatomy scan 12/24, echo 12/31. F/u in 2w for glucose log, 4w for routine care. Printed records per release. 12/18/24 <del>?</del> 27w 3d 95.481 kg 132/90 absent unknown 25 158 active 27w3d here for routine visit. IVF , diet-controlled GDM with BG <100 fasting, occasional postprandial spikes with sweets. No CTX/LOF/VB, reports good FM. FHR 158. Plan: Continue BG monitoring, no meds. Emphasize protein/veggies before carbs, switch to diet soda, walk post meals. U/S 12/24, echo 01/07, f/u after 12/30. Delivery 39w?KEVIN. C/S if breech, otherwise pt to choose mode. KEVIN Calculator Estimated Delivery Date Method Current WG Current Estimate 03/16/25 Ultrasound #2 30w 1d Other Estimates 03/12/25 Ultrasound #1 30w 5d Office Procedures OB Clinic LOC & Office Proc's Nursing/Assessment Patient Status: Established Patient OB Clinic Nursing Assessment: Medication Reconciliation, Update PMH in EMR and Vital Signs OB Clinic Coordination of Care: Complex Care and Chronic Disease 1-5, Education Complex Pt/Fam, Consent,records obtained, informed consent, Lab and Imaging orders and Staff clarify orders Special Needs: Heart tones Established Patient Charge Established Patient Point Assignment: 135 Established Patient Point Charge: EP Level 3 (80-115) Assessment & Plan Diagnosis / Problem List (1) conceived through in vitro fertilization: Status: Acute (2) Supervision of high risk , unspecified, second trimester: Status: Acute (3) Gestational diabetes, diet controlled: Status: Acute
[2024-11-30 13:14] VITALS: BP 132/84; PULSE 100; RESP 17; TEMP 36.3; O2SAT 96; BMI 40.8
== END 2024-11-30 14:54 | disposition home or self-care (01) ==
LOC: HODSOBC 13:09
PROVIDERS: PCP Obstetrics & Gynecology; Referring Provider Obstetrics & Gynecology; Supervising Provider Obstetrics & Gynecology; Visit Provider Obstetrics & Gynecology
DX: O09.522 Supervision of elderly multigravida, second trimester (principal); O09.812 Supervision of pregnancy resulting from assisted reproductive technology, second trimester; O09.892 Supervision of other high risk pregnancies, second trimester; O24.410 Gestational diabetes mellitus in pregnancy, diet controlled; Z3A.24 24 weeks gestation of pregnancy
CPT/HCPCS: 99213; G0463

== ENCOUNTER 2024-12-18 14:17 | Outpatient (AMB) | payer BC, SELFPAY ==
[2024-12-18 14:40] VITALS: BP 132/90; PULSE 100; RESP 18; TEMP 36.5; O2SAT 96; BMI 41.3
--- NOTE | 2024-12-18 14:40 | OBCLNT_ITS ---
Vital Signs 12/18/24 14:40 Height 1.52 m Height Method Stated Weight 95.481 kg Weight Measurement Method Standing Scale BMI 41.3 BP 132/90 H Blood Pressure Source Automatic Cuff Blood Pressure Location Right Upper Arm Position Sitting Respiration 18 Pulse 100 Pulse Source Monitor Temp 97.7 F Temp Source Temporal Artery Scan Pulse Oximetry (%) 96 Oxygen Delivery Method Room Air Allergies/Home Meds Allergies & Medications Allergies No Known Allergies Allergy (Verified 12/18/24 14:41) Medication Reconciliation blood sugar diagnostic (Blood Glucose Test strips) #10 ea 11/30/24 [Rx Confirmed 12/18/24] blood-glucose meter #1 ea 11/30/24 [Rx Confirmed 12/18/24] folic acid 0.8 mg capsule 0.8 mg PO QDAY 11/30/24 [History Confirmed 12/18/24] lancets #100 ea 11/30/24 [Rx Confirmed 12/18/24] vits no.126-ferrous fum 28 mg iron-folic acid 800 mcg tablet (Classic ) tab PO 11/30/24 [History Confirmed 12/18/24] Intake Visit Data Collection New Patient or Established: Established Patient (seen at [facility] within 3 years) Reason for Visit:: OBC Seen by Clinical Staff ONLY (RN/MA): No 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 1. Little interest or pleasure in doing things: not at all 2. Feeling down, depressed, or hopeless: not at all Total score: 0 PHQ-9 3. Trouble falling or staying asleep, or sleeping too much: Not at all 4. Feeling tired or having little energy: Not at all 5. Poor appetite or overeating: Not at all 6. Feeling bad about yourself - or that you are a failure or have let yourself or your family down: Not at all 7. Trouble concentrating on things, such as reading the newspaper or watching television: Not at all 8. Moving or speaking so slowly that other people could have noticed? - Or the opposite - being so fidgety or restless that you have been moving around a lot more than usual: not at all 9. Thoughts that you would be better off or of hurting yourself in some way: Not at all Total score: 0 If you checked off any problems, how difficult have these problems made it for you to do your work, take care of things at home, or get along with other people?: not difficult at all Source: Developed by Drs. Az Melara, Ankita Wheeler, iWlliam Alves and colleagues, with an educational robert from [employer]. 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 No contractions, LOF, VB and reports good FM. Denies BELTRE, VC, and epigastric pain. - Martha Stuart is a 39-year-old female, 1 para 0, at 27 weeks and 3 days gestation presenting for routine care. - Patient was last seen 2 weeks ago and given glucose testing supplies. - She reports blood glucose levels: - Fasting levels have been under 100 mg/dL, except for the first day which was slightly elevated. - Post-prandial levels increased after consuming sweet foods (Sprite, pie). - Morning glucose levels were lower (87-88 mg/dL) when eating only eggs for breakfast. - Denies taking any medications for diabetes management. - Reports regular movement. Care OB Visit Log OB Flowsheet Initial Weight: Not Recorded Date -?-?-?-?-?-?-?-?-?-?-?-?- EGA Weight BP Alb Glu CTX Pres Fundal ht FHR Mov Dilation Station Effacement Hx Notes Visit Note 09/13/24 -?-?-?-?-?-?-?-?-?-?-?-?- 13w 5d 91.399 kg 129/83 175 active OB New visit. IVF . Labs pending 10/15/24 -?-?-?-?-?-?-?-?-?-?-?-?- 18w 2d 93.667 kg 126/88 145 active Martha Stuart, 39 y/o at 19w0d gestation following IVF in [place], presents for routine visit. 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 Subchorionic hemorrhage from early now resolved. Denies CTX/LOF/VB; reports good FM. FHR 138 bpm. Blood type A+, Ab screen negative, Hgb 11.8, plt 311,000. Rubella immune, OB labs normal. Plan: Follow-up in 4 weeks at 24w for GT T and review anatomy scan results (pending call from [facility]?s). Reassurance and supportive care for sciatica and neck symptoms: rest, neck ROM, warm/cold compress. Continue routine care and safety counseling. 11/15/24 -?-?-?-?-?-?-?-?-?-?-?-?- 22w 5d 94.574 kg 141/97 155 active 39yo @22w5d, IVF, good FM, ongoing cervical radiculopathy with hand/arm pain, FHT 155?160 bpm. Plan: 1hr g lucose today, anatomy scan pending insurance, neck exercises, consider disability leave, PT and MRI , f/u in 2 weeks. 12/18/24 -?-?-?-?-?-?-?-?-?-?-?-?- 27w 3d 95.481 kg 132/90 absent unknown 25 158 active 27w3d here for routine visit. IVF , diet-controlled GDM with BG <100 fasting, occasional postprandial spikes with sweets. No CTX/LOF/VB, reports good FM. FHR 158. Plan: Continue BG monitoring, no meds. Emphasize protein/veggies before carbs, switch to diet soda, walk post meals. U/S 12/24, echo 01/07, f/u after 12/30. Delivery 39w?KEVIN. C/S if breech, otherwise pt to choose mode. KEVIN Calculator Estimated Delivery Date Method Current WG Current Estimate 03/16/25 Ultrasound #2 27w 3d Other Estimates 03/12/25 Ultrasound #1 28w 0d Office Procedures OB Clinic LOC & Office Proc's Nursing/Assessment Patient Status: Established Patient OB Clinic Nursing Assessment: Medication Reconciliation, Update PMH in EMR and Vital Signs OB Clinic Coordination of Care: Complex Care and Chronic Disease 1-5, Consent,records obtained, informed consent, Education Simp Pt/Fam and Staff clarify orders Special Needs: Heart tones Established Patient Charge Established Patient Point Assignment: 115 Established Patient Point Charge: EP Level 3 (80-115) Assessment & Plan Diagnosis / Problem List (1) conceived through in vitro fertilization: Status: Acute (2) Advanced maternal age, primigravida: Status: Acute (3) Supervision of high risk , unspecified, second trimester: Status: Acute (4) Gestational diabetes, diet controlled: Status: Acute Plan Problem List - , 27 weeks and 3 days gestation - Gestational diabetes mellitus (diet controlled) - IVF Assessment 39-year-old at 27 weeks and 3 days gestation presenting for routine care. Patient has gestational diabetes managed with diet, currently not on medications. Blood glucose readings show fasting levels under 100 mg/dL, with occasional postprandial spikes associated with high-sugar foods. heart rate auscultated at 158 bpm, which is within normal range. Patient reports consistent movement. conceived via IVF, which is considered high-risk. Plan - Continue monitoring blood glucose levels - Switch to diet sodas if desired - Eat protein and vegetables before carbohydrates - Maintain consistent portion sizes - Walk for 10 minutes after meals, especially when traveling - No medications for diabetes management at this time - Attend scheduled ultrasound on December 24 - Attend rescheduled cardiac echo on January 07 - Follow-up appointment after December 30 - Delivery window between 39 weeks and due date for IVF - required if baby is breech; vaginal delivery if vertex presentation - Patient to decide on preferred delivery method (vaginal vs. elective C- section)
== END 2024-12-18 15:03 | disposition home or self-care (01) ==
LOC: HODSOBC 14:17
PROVIDERS: PCP Obstetrics & Gynecology; Referring Provider Obstetrics & Gynecology; Supervising Provider Obstetrics & Gynecology; Visit Provider Obstetrics & Gynecology
DX: O09.812 Supervision of pregnancy resulting from assisted reproductive technology, second trimester (principal); O09.512 Supervision of elderly primigravida, second trimester; O09.892 Supervision of other high risk pregnancies, second trimester; O24.410 Gestational diabetes mellitus in pregnancy, diet controlled; Z3A.27 27 weeks gestation of pregnancy
CPT/HCPCS: 99213; G0463

== ENCOUNTER 2025-01-08 10:05 | Outpatient (AMB) | payer BC, SELFPAY ==
--- NOTE | 2025-01-08 10:13 | OBCLNT_ITS ---
Vital Signs 01/08/25 10:14 Height 1.52 m Height Method Stated Weight 95.935 kg Weight Measurement Method Standing Scale BMI 41.5 BP 132/89 H Blood Pressure Source Automatic Cuff Blood Pressure Location Right Upper Arm Position Sitting Respiration 17 Pulse 87 Pulse Source Monitor Temp 97.8 F Temp Source Temporal Artery Scan Pulse Oximetry (%) 97 Oxygen Delivery Method Room Air Allergies/Home Meds Allergies & Medications Allergies No Known Allergies Allergy (Verified 01/08/25 10:15) Medication Reconciliation blood sugar diagnostic (Blood Glucose Test strips) #10 ea 11/30/24 [Rx Confirmed 01/08/25] blood-glucose meter #1 ea 11/30/24 [Rx Confirmed 01/08/25] folic acid 0.8 mg capsule 0.8 mg PO QDAY 11/30/24 [History Confirmed 01/08/25] lancets #100 ea 11/30/24 [Rx Confirmed 01/08/25] vits no.126-ferrous fum 28 mg iron-folic acid 800 mcg tablet (Classic ) tab PO 11/30/24 [History Confirmed 01/08/25] Intake Visit Data Collection New Patient or Established: Established Patient (seen at [facility] within 3 years) Reason for Visit:: OBC Seen by Clinical Staff ONLY (RN/MA): No Logging 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 1. Little interest or pleasure in doing things: not at all 2. Feeling down, depressed, or hopeless: not at all Total score: 0 PHQ-9 3. Trouble falling or staying asleep, or sleeping too much: Not at all 4. Feeling tired or having little energy: Not at all 5. Poor appetite or overeating: Not at all 6. Feeling bad about yourself - or that you are a failure or have let yourself or your family down: Not at all 7. Trouble concentrating on things, such as reading the newspaper or watching television: Not at all 8. Moving or speaking so slowly that other people could have noticed? - Or the opposite - being so fidgety or restless that you have been moving around a lot more than usual: not at all 9. Thoughts that you would be better off or of hurting yourself in some way: Not at all Total score: 0 If you checked off any problems, how difficult have these problems made it for you to do your work, take care of things at home, or get along with other people?: not difficult at all Source: Developed by Drs. Az Melara, Ankita Wheeler, William Alves and colleagues, with an educational robert from [employer]. 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 IVF . Labs pending 10/15/24 -?-?-?-?-?-?-?-?-?-?-?-?- 18w 6d 93.667 kg 126/88 145 active Martha Stuart, 39 y/o at 19w0d gestation following IVF in [place], presents for routine visit. 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 Subchorionic hemorrhage from early now resolved. Denies CTX/LOF/VB; reports good FM. FHR 138 bpm. Blood type A+, Ab screen negative, Hgb 11.8, plt 311,000. Rubella immune, OB labs normal. Plan: Follow-up in 4 weeks at 24w for GT T and review anatomy scan results (pending call from [facility]?s). Reassurance and supportive care for sciatica and neck symptoms: rest, neck ROM, warm/cold compress. Continue routine care and safety counseling. 11/15/24 -?-?-?-?-?-?--?-?-?-?-?-?- 23w 2d 94.574 kg 141/97 155 active 39yo @22w5d, IVF, good FM, ongoing cervical radiculopathy with hand/arm pain, FHT 155?160 bpm. Plan: 1hr glucose today, anatomy scan pending insurance, neck exercises, consider disability leave, PT and MRI , f/u in 2 weeks. 11/30/24 -?-?-?-?-?-?-?-?-?-?-?-?- 25w 3d 94.461 kg 132/84 occasional cephalic 24 142 active at 24w6d via IVF, elevated 1hr GTT 177, likely GDM. Has carpal tunnel, on disability. FHR 142, good FM. Plan: Start home glucose checks (fasting <100, 1hr post-meal <140), supplies to pharmacy. Anatomy scan 12/24, echo 12/31. F/u in 2w for glucose log, 4w for routine care. Printed records per release. 12/18/24 -?-?-?-?-?-?-?-?-?-?-?-?- 28w 0d 95.481 kg 132/90 absent unknown 25 158 active 27w3d here for routine visit. IVF , diet-controlled GDM with BG <100 fasting, occasional postprandial spikes with sweets. No CTX/LOF/VB, reports good FM. FHR 158. Plan: Continue BG monitoring, no meds. Emphasize protein/veggies before carbs, switch to diet soda, walk post meals. U/S 12/24, echo 01/07, f/u after 12/30. Delivery 39w?KEVIN. C/S if breech, otherwise pt to choose mode. 01/08/25 -?-?-?-?-?-?-?-?-?-?-?-?- 31w 0d 95.935 kg 132/89 absent transverse 30 active fetus active. denies leaking,bleeding, contractions. patient desire elective c/s. reports compliance with GDM diet, sugars at goal. c/o swelling of hands, deneis PIH complaints f/u with OB [place]. discuss fkc bid. discuss PTL s/s. decrease salty foods. increas veggies and protein. hydrate. Urine culture to lab for c/o dysuria KEVIN Calculator Estimated Delivery Date Method Current WG Current Estimate 03/12/25 Ultrasound #1 31w 0d Other Estimates 03/16/25 Ultrasound #2 30w 3d Office Procedures OB Clinic LOC & Office Proc's Nursing/Assessment Patient Status: Established Patient OB Clinic Nursing Assessment: Medication Reconciliation, Update PMH in EMR and Vital Signs OB Clinic Coordination of Care: Complex Care and Chronic Disease 1-5, Consent,records obtained, informed consent, Education Simp Pt/Fam and Staff clarify orders Special Needs: Heart tones Established Patient Charge Established Patient Point Assignment: 115 Established Patient Point Charge: EP Level 3 (80-115) Assessment & Plan Diagnosis / Problem List (1) Gestational diabetes, diet controlled: Status: Acute (2) Encounter for supervision of high risk in third trimester, antepartum: Status: Acute (3) Painful micturition, unspecified: Status: Acute Plan urine culture today, increase fluid, discuss ptl precaution, continue GDM diet, walk 40 minute daily, glucose monitoring. f/u with OB [place], patient elects primary c/s. rtc 2 week Additional Plan Follow Up: 2 Weeks (obc)
[2025-01-08 10:14] VITALS: BP 132/89; PULSE 87; RESP 17; TEMP 36.6; O2SAT 97; BMI 41.5
== END 2025-01-08 10:46 | disposition home or self-care (01) ==
LOC: HODSOBC 10:05
PROVIDERS: Supervising Provider Advanced Practice Midwife; Visit Provider Advanced Practice Midwife
DX: O09.513 Supervision of elderly primigravida, third trimester (principal); O09.813 Supervision of pregnancy resulting from assisted reproductive technology, third trimester; O09.893 Supervision of other high risk pregnancies, third trimester; O24.410 Gestational diabetes mellitus in pregnancy, diet controlled; O99.891 Other specified diseases and conditions complicating pregnancy; R30.9 Painful micturition, unspecified; Z3A.31 31 weeks gestation of pregnancy
CPT/HCPCS: 99213; G0463

== ENCOUNTER → 2025-01-08 | Outpatient (CLI) | payer BC, SELFPAY | END | disposition home or self-care (01) | LOC: SLDO 12:45 | PROVIDERS: Referring Provider Advanced Practice Midwife; Visit Provider Advanced Practice Midwife | DX: O09.93 Supervision of high risk pregnancy, unspecified, third trimester (principal); O24.410 Gestational diabetes mellitus in pregnancy, diet controlled; R30.9 Painful micturition, unspecified | CPT/HCPCS: 87077; 87086; 87186 ==

== ENCOUNTER 2025-01-22 09:55 | Outpatient (AMB) | payer BC, SELFPAY ==
[2025-01-22 10:11] VITALS: BP 133/86; PULSE 87; RESP 16; TEMP 36.1; O2SAT 95; BMI 41.3
--- NOTE | 2025-01-22 10:11 | OBCLNT_ITS ---
Vital Signs 01/22/25 10:11 Height 1.52 m Height Method Stated Weight 95.368 kg Weight Measurement Method Standing Scale BMI 41.3 BP 133/86 H Blood Pressure Source Automatic Cuff Blood Pressure Location Left Upper Arm Position Sitting Respiration 16 Pulse 87 Pulse Source Monitor Temp 96.9 F Temp Source Oral Pulse Oximetry (%) 95 Oxygen Delivery Method Room Air Allergies/Home Meds Allergies & Medications Allergies ciprofloxacin Allergy (Severe, Verified 02/12/25 11:41) ITICHING AND HIVES Medication Reconciliation blood sugar diagnostic (Blood Glucose Test strips) #10 ea 11/30/24 [Rx Confirmed 02/12/25] blood-glucose meter #1 ea 11/30/24 [Rx Confirmed 02/12/25] folic acid 0.8 mg capsule 0.8 mg PO QDAY 11/30/24 [History Confirmed 02/12/25] lancets #100 ea 11/30/24 [Rx Confirmed 02/12/25] vits no.126-ferrous fum 28 mg iron-folic acid 800 mcg tablet (Classic ) 1 tab PO QDAY 11/30/24 [History Confirmed 02/12/25] breast pump #1 ea 02/05/25 [Rx Confirmed 02/12/25] Intake Visit Data Collection New Patient or Established: Established Patient (seen at [facility] within 3 years) Reason for Visit:: CARE Seen by Clinical Staff ONLY (RN/MA): No Manufacturing Quality 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 1. Little interest or pleasure in doing things: not at all 2. Feeling down, depressed, or hopeless: not at all Total score: 0 PHQ-9 3. Trouble falling or staying asleep, or sleeping too much: Not at all 4. Feeling tired or having little energy: Not at all 5. Poor appetite or overeating: Not at all 6. Feeling bad about yourself - or that you are a failure or have let yourself or your family down: Not at all 7. Trouble concentrating on things, such as reading the newspaper or watching television: Not at all 8. Moving or speaking so slowly that other people could have noticed? - Or the opposite - being so fidgety or restless that you have been moving around a lot more than usual: not at all 9. Thoughts that you would be better off or of hurting yourself in some way: Not at all Total score: 0 Source: Developed by Drs. Az Melara, Ankita Wheeler, William Alves and colleagues, with an educational robert from [employer]. 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 IVF . Labs pending 10/15/24 -?-?-?-?-?-?-?-?-?-?-?-?- 18w 2d 93.667 kg 126/88 145 active Martha Stuart, 39 y/o at 19w0d gestation following IVF in [place], presents for routine visit. 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 Subchorionic hemorrhage from early now resolved. Denies CTX/LOF/VB; reports good FM. FHR 138 bpm. Blood type A+, Ab screen negative, Hgb 11.8, plt 311,000. Rubella immune, OB labs normal. Plan: Follow-up in 4 weeks at 24w for GT T and review anatomy scan results (pending call from [facility]s). Reassurance and supportive care for sciatica and neck symptoms: rest, neck ROM, warm/cold compress. Continue routine care and safety counseling. 11/15/24 -?-?-?-?-?-?-?-?-?-?-?-?- 22w 5d 94.574 kg 141/97 155 active 39yo @22w5d, IVF, good FM, ongoing cervical radiculopathy with hand/arm pain, FHT 155?160 bpm. Plan: 1hr glucose today, anatomy scan pending insurance, neck exercises, consider disability leave, PT and MRI , f/u in 2 weeks. 11/30/24 -?-?-?-?-?-?-?-?-?-?-?-?- 24w 6d 94.461 kg 132/84 occasional cephalic 24 142 active at 24w6d via IVF, elevated 1hr GTT 177, likely GDM. Has carpal tunnel, on disability. FHR 142, good FM. Plan: Start home glucose checks (fasting <100, 1hr post-meal <140), supplies to pharmacy. Anatomy scan 12/24, echo 12/31. F/u in 2w for glucose log, 4w for routine care. Printed records per release. 12/18/24 -?-?-?-?-?-?-?-?-?-?-?-?- 27w 3d 95.481 kg 132/90 absent unknown 25 158 active 27w3d here for routine visit. IVF , diet-controlled GDM with BG <100 fasting, occasional postprandial spikes with sweets. No CTX/LOF/VB, reports good FM. FHR 158. Plan: Continue BG monitoring, no meds. Emphasize protein/veggies before carbs, switch to diet soda, walk post meals. U/S 12/24, echo 01/07, f/u after 12/30. Delivery 39w?KEVIN. C/S if breech, otherwise pt to choose mode. 01/08/25 -?-?-?-?-?-?-?-?-?-?-?-?- 30w 3d 95.935 kg 132/89 absent transverse 30 active fetus active. denies leaking,bleeding, contractions. patient desire elective c/s. reports compliance with GDM diet, sugars at goal. c/o swelling of hands, deneis PIH complaints f/u with OB [place]. discuss fkc bid. discuss PTL s/s. decrease salty foods. increas veggies and protein. hydrate. Urine culture to lab for c/o dysuria 01/22/25 -?-?-?-?-?-?-?-?-?-?-?-?- 32w 3d 95.368 kg 133/86 occasional breech 32 active - Experiencing pain since 1 AM today - Constant back pain, attributed to pr essure - Tightening sensations, possibly cont ractions - Frequency not specified, but noted as not bad - Discomfort and difficulty moving - Pain when stretching, particularly in upper area - Patient is scheduled for on January 31 due to breech presentation Patient reports contractions and back pa in. Reports good FM. Denies BELTRE, VC, and epigastric pain. - Patient to proceed to 4th floor of [facility] for monitoring and evaluation - Nurses to be notified of patient's arr ival - Patient to be monitored and rechecked after 2 hours to assess for labor progression - If labor is progressing, patient may d eliver today - If not delivering today, scheduled C-s ection on January 31 at 12:30 PM (patient to arrive at 10:00 AM) - No food, drink, or medications after m idnight the night before 02/12/25 -?-?-?-?-?-?-?-?-?-?-?-?- 35w 3d 97.069 kg 143/98 absent breech 35 a ctive - Martha Stuart is a 1 para 0 female at 35 weeks and 3 days gestation, presenting with severely elevated blood pressure. - Today's blood pressure is 173/131 mmHg . - Patient has been experiencing signific ant blood pressure spikes. - No reported symptoms: - Denies headaches - Denies visual symptoms - Denies contractions, cramping, or le aking - Reports active movement - Patient confirmed desire for primary - Sent in to Labor & Delivery for comprehensive pre-eclampsia evaluation - Serial blood pressure monitoring - Complete pre-eclampsia workup - Confirm primary preference w ith patient - Continue monitoring until definitive m anagement determined - If blood pressure remains severely loly vated, prepare for potential immediate delivery KEVIN Calculator Estimated Delivery Date Method Current WG Current Estimate 03/16/25 LMP (Certain) 35w 3d Other Estimates 03/12/25 Ultrasound #1 36w 0d 03/16/25 Ultrasound #2 35w 3d Office Procedures OB Clinic LOC & Office Proc's Nursing/Assessment Patient Status: Established Patient OB Clinic Nursing Assessment: Medication Reconciliation, Update PMH in EMR and Vital Signs OB Clinic Coordination of Care: AMA, Complex Care and Chronic Disease 1-5, Consent,records obtained, informed consent, Education Simp Pt/Fam, 1 Ins Authorization, Lab and Imaging orders, Results/Orders obtained and Staff clarify orders Special Needs: Heart tones Established Patient Charge Established Patient Point Assignment: 170 Established Patient Point Charge: EP Level 5 (160-above) Assessment & Plan Diagnosis / Problem List (1) Encounter for supervision of high risk in third trimester, antepartum: Status: Acute
== END 2025-01-22 11:00 | disposition home or self-care (01) ==
LOC: HODSOBC 09:55
PROVIDERS: Supervising Provider Obstetrics & Gynecology; Visit Provider Obstetrics & Gynecology
DX: O09.513 Supervision of elderly primigravida, third trimester (principal); O09.893 Supervision of other high risk pregnancies, third trimester; O32.1XX0 Maternal care for breech presentation, not applicable or unspecified; Z3A.32 32 weeks gestation of pregnancy; Z88.1 Allergy status to other antibiotic agents
CPT/HCPCS: 99215; G0463

== ENCOUNTER 2025-02-05 11:46 | Outpatient (CLI) | payer BC, SELFPAY ==
[2025-02-05] VITALS (9 sets, daily range): BP systolic 123–162; BP diastolic 68–100; PULSE 59–96; RESP 18–99; TEMP 37; BMI 41.4
[2025-02-05 13:17] LABS: Collection Type, Urine Clean Catch
[2025-02-05 13:26] LABS: Basophils # (Auto) 0.0 Thou/mm3 (0.0-0.2); Basophils % (Auto) 0 % (0-2.5); Eosinophils # (Auto) 0.1 Thou/mm3 (0.0-0.5); Eosinophils % (Auto) 1 % (0-10); Hematocrit 31.8 % (36.0-46.0); Hemoglobin 11.0 g/dL (12.0-16.0); Immature Granulocytes Auto 0.02 Thou/mm3 (0.00-0.00); Lymphocytes # (Auto) 1.6 Thou/mm3 (1.0-4.8); Lymphocytes % (Auto) 27 % (10-50); Mean Corpuscular HGB Conc 34.6 g/dl (31.0-37.0); Mean Corpuscular Hemoglobin 30.0 pg (25.0-35.0); Mean Corpuscular Volume 87 fL (80-100); Monocytes # (Auto) 0.4 Thou/mm3 (0.0-0.8); Monocytes % (Auto) 7 % (0-12); Neutrophils # (Auto) 3.8 Thou/mm3 (1.8-7.7); Neutrophils % (Auto) 65 % (37-80); Nucleated Red Blood Cell # 0.00 Thou/mm3 (0.00-0.00); Nucleated Red Blood Cell % 0 /100 WBC (0); Platelet Count 231 Thou/mm3 (140-440); RDW Standard Deviation 40.2 fL (36.4-46.3); Red Blood Count 3.67 Miln/mm3 (4.00-5.20); White Blood Count 5.9 Thou/mm3 (3.6-11.0)
[2025-02-05 13:44] LABS: Bacteria,Urine Rare; Bilirubin,Urine Negative (Negative); Blood,Urine Negative (Negative); Calcium Oxalate Crystals,Urine 3+; Clarity,Urine Clear (Clear/Hazy); Color,Urine Yellow (Lt Yel-Yel); Glucose, Urine Negative (Negative); Ketones,Urine Negative (Negative); Leukocyte Esterase,Urine Negative (Negative); Nitrite,Urine Negative (Negative); PH,Urine 5.5 (5.0-7.0); Protein,Urine Negative (Neg - Trace); RBC,Urine 1 /hpf (0-3); Specific Gravity,Urine 1.024 (1.001-1.035); Squamous Epithelial Cell,Urine 7 /hpf (0-5); Urobilinogen,Urine Negative mg/dL (0.0-1.0); WBC,Urine 3 /hpf (0-5)
[2025-02-05 13:44] LABS: Fibrinogen 486 mg/dL (175-375); INR 0.9 (0.9-1.3); Partial Thromboplastin Time 29.0 Seconds (22.0-36.0); Prothrombin Time 9.8 Seconds (9.0-12.2)
[2025-02-05 13:49] LABS: Alanine Aminotransferase 7 U/L (10-49); Albumin, Serum 3.1 gm/dL (3.5-5.0); Albumin/Globulin Ratio 1.6 (1.2-2.2); Alkaline Phosphatase 133 U/L (46-116); Anion Gap 8 (7-16); Aspartate Amino Transferase 16 U/L (0-34); BUN/Creatinine Ratio 12 Ratio (12-20); Bilirubin,Total 0.3 mg/dL (0.3-1.2); Blood Urea Nitrogen 7 mg/dL (9-23); Calcium 9.3 mg/dL (8.3-10.6); Calcium (Corrected) 10.0 mg/dL (8.5-10.1); Carbon Dioxide 22.0 mMol/L (20.0-31.0); Chloride 109 mMol/L (98-107); Creatinine (Component) 0.6 mg/dL (0.6-1.3); Estimated Creatinine Clearance 133.4 mL/min (>60); Globulin 1.9 gm/dL (2.3-3.5); Glucose 114 mg/dL (74-106); LDH (Lactate Dehydrogenase) 150 U/L (120-246); Osmolality,Calculated 276 (275-295); Potassium 3.5 mMol/L (3.4-5.1); Sodium 139 mMol/L (136-145); Total Protein 5.0 gm/dL (5.7-8.2); eGFR > 60 See Note
[2025-02-05 13:57] LABS: Protein Total, Random Urine 29 mg/dL (1-14)
[2025-02-05 14:00] LABS: Creatinine,Random Urine 189 mg/dL (30-125)
[2025-02-05 14:00] LABS: Uric Acid 4.5 mg/dL (3.1-7.8)
== END 2025-02-05 14:17 | disposition home or self-care (01) ==
LOC: S4S1 11:46 → S4SX 11:47
PROVIDERS: Referring Provider Obstetrics & Gynecology; Visit Provider Obstetrics & Gynecology
DX: O26.893 Other specified pregnancy related conditions, third trimester (principal); Z3A.34 34 weeks gestation of pregnancy; R03.0 Elevated blood-pressure reading, without diagnosis of hypertension
CPT/HCPCS: 36415; 59025; 80053; 81001; 82570; 83615; 84156; 84550; 85025; 85384; 85610; 85730

== ENCOUNTER 2025-02-12 11:33 | Outpatient (AMB) | payer BC, SELFPAY ==
--- NOTE | 2025-02-12 11:34 | OBCLNT_ITS ---
Vital Signs 02/12/25 11:40 Height 1.52 m Height Method Stated Weight 97.069 kg Weight Measurement Method Standing Scale BMI 41.8 BP 143/98 H Blood Pressure Source Automatic Cuff Blood Pressure Location Left Upper Arm Position Sitting Respiration 18 Pulse 97 Pulse Source Monitor Temp 97.4 F Temp Source Oral Pulse Oximetry (%) 97 Oxygen Delivery Method Room Air Allergies/Home Meds Allergies & Medications Allergies ciprofloxacin Allergy (Severe, Verified 02/12/25 11:41) ITICHING AND HIVES Medication Reconciliation blood sugar diagnostic (Blood Glucose Test strips) #10 ea 11/30/24 [Rx Confirmed 02/12/25] blood-glucose meter #1 ea 11/30/24 [Rx Confirmed 02/12/25] folic acid 0.8 mg capsule 0.8 mg PO QDAY 11/30/24 [History Confirmed 02/12/25] lancets #100 ea 11/30/24 [Rx Confirmed 02/12/25] vits no.126-ferrous fum 28 mg iron-folic acid 800 mcg tablet (Classic ) 1 tab PO QDAY 11/30/24 [History Confirmed 02/12/25] breast pump #1 ea 02/05/25 [Rx Confirmed 02/12/25] Intake Visit Data Collection New Patient or Established: Established Patient (seen at 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 1. Little interest or pleasure in doing things: not at all 2. Feeling down, depressed, or hopeless: not at all Total score: 0 PHQ-9 3. Trouble falling or staying asleep, or sleeping too much: Not at all 4. Feeling tired or having little energy: Not at all 5. Poor appetite or overeating: Not at all 6. Feeling bad about yourself - or that you are a failure or have let yourself or your family down: Not at all 7. Trouble concentrating on things, such as reading the newspaper or watching television: Not at all 8. Moving or speaking so slowly that other people could have noticed? - Or the opposite - being so fidgety or restless that you have been moving around a lot more than usual: not at all 9. Thoughts that you would be better off or of hurting yourself in some way: Not at all Total score: 0 Source: Developed by Drs. Az Melara, Ankita Wheeler, William Alves and colleagues, with an educational robert from [employer]. Depression screen completed yes Social History Living Situation History Lives With: Family Housing: House Tobacco History Smoking Status: Never smoker Second Hand Smoke Exposure: No Alcohol History Alcohol Intake: Former Alcohol Intake Frequency: holidays/special occasions only Substance Use History Substance Use: no Domestic Abuse History Do You Feel Safe at Home: Yes CELLAR HAND: Past Medical History Past Medical History: Yes Hx Breast Cancer (grandmother), Yes Hx Hypertension (Father), No Hx Anemia, No Hx Renal Disease, No Hx Diabetes Mellitus Type 1 and No Hx Diabetes Mellitus Type 2 Care OB Visit Log OB Flowsheet Initial Weight: Not Recorded Date -?-?-?-?-?-?-?-?-?-?-?-?- EGA Weight BP Alb Glu CTX Pres Fundal ht FHR Mov Dilation Station Effacement Hx Notes Visit Note 09/13/24 -?-?-?--?-?-?-?-?-?-?-?-?- 13w 5d 91.399 kg 129/83 175 active OB New visit. IVF . Labs pending 10/15/24 -?-?-?-?-?-?-?-?-?-?-?-?- 18w 2d 93.667 kg 126/88 145 active Martha Stuart, 39 y/o at 19w0d gestation following IVF in [place], presents for routine visit. 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 Subchorionic hemorrhage from early now resolved. Denies CTX/LOF/VB; reports good FM. FHR 138 bpm. Blood type A+, Ab screen negative, Hgb 11.8, plt 311,000. Rubella immune, OB labs normal. Plan: Follow-up in 4 weeks at 24w for GT T and review anatomy scan results (pending call from [facility]?s). Reassurance and supportive care for sciatica and neck symptoms: rest, neck ROM, warm/cold compress. Continue routine care and safety counseling. 11/15/24 -?-?-?-?-?-?-?-?-?-?-?-?- 22w 5d 94.574 kg 141/97 155 active 39yo @22w5d, IVF, good FM, ongoing cervical radiculopathy with hand/arm pain, FHT 155?160 bpm. Plan: 1hr glucose today, anatomy scan pending insurance, neck exercises, consider disability leave, PT and MRI , f/u in 2 weeks. 11/30/24 -?-?-?-?-?-?-?-?-?-?-?-?- 24w 6d 94.461 kg 132/84 occasional cephalic 24 142 active at 24w6d via IVF, elevated 1hr GTT 177, likely GDM. Has carpal tunnel, on disability. FHR 142, good FM. Plan: Start home glucose checks (fasting <100, 1hr post-meal <140), supplies to pharmacy. Anatomy scan 12/24, echo 12/31. F/u in 2w for glucose log, 4w for routine care. Printed records per release. 12/18/24 -?-?-?-?-?-?-?-?-?-?-?-?- 27w 3d 95.481 kg 132/90 absent unknown 25 158 active 27w3d here for routine visit. IVF , diet-controlled GDM with BG <100 fasting, occasional postprandial spikes with sweets. No CTX/LOF/VB, reports good FM. FHR 158. Plan: Continue BG monitoring, no meds. Emphasize protein/veggies before carbs, switch to diet soda, walk post meals. U/S 12/24, echo 01/07, f/u after 12/30. Delivery 39w?KEVIN. C/S if breech, otherwise pt to choose mode. 01/08/25 -?-?-?-?-?-?-?-?-?-?-?-?- 30w 3d 95.935 kg 132/89 absent transverse 30 active fetus active. denies leaking,bleeding, contractions. patient desire elective c/s. reports compliance with GDM diet, sugars at goal. c/o swelling of hands, deneis PIH complaints f/u with OB [place]. discuss fkc bid. discuss PTL s/s. decrease salty foods. increas veggies and protein. hydrate. Urine culture to lab for c/o dysuria 01/22/25 -?-?-?-?-?-?-?-?-?-?-?-?- 32w 3d 95.368 kg 133/86 occasional breech 32 active - Experiencing pain since 1 AM today - Constant back pain, attributed to pr essure - Tightening sensations, possibly cont ractions - Frequency not specified, but noted as not bad - Discomfort and difficulty moving - Pain when stretching, particularly in upper area - Patient is scheduled for on January 31 due to breech presentation Patient reports contractions and back pa in. Reports good FM. Denies BELTRE, VC, and epigastric pain. - Patient to proceed to 4th floor of [facility] for monitoring and evaluation - Nurses to be notified of patient's arr ival - Patient to be monitored and rechecked after 2 hours to assess for labor progression - If labor is progressing, patient may d eliver today - If not delivering today, scheduled C-s ection on January 31 at 12:30 PM (patient to arrive at 10:00 AM) - No food, drink, or medications after m idnight the night before 02/12/25 -?-?-?-?-?-?-?-?-?-?-?-?- 35w 3d 97.069 kg 143/98 absent breech 35 a ctive - Martha Stuart is a 1 para 0 female at 35 weeks and 3 days gestation, presenting with severely elevated blood pressure. - Today's blood pressure is 173/131 mmHg . - Patient has been experiencing signific ant blood pressure spikes. - No reported symptoms: - Denies headaches - Denies visual symptoms - Denies contractions, cramping, or le aking - Reports active movement - Patient confirmed desire for primary - Sent in to Labor & Delivery for comprehensive pre-eclampsia evaluation - Serial blood pressure monitoring - Complete pre-eclampsia workup - Confirm primary preference w ith patient - Continue monitoring until definitive m anagement determined - If blood pressure remains severely loly vated, prepare for potential immediate delivery KEVIN Calculator Estimated Delivery Date Method Current WG Current Estimate 03/16/25 LMP (Certain) 35w 3d Other Estimates 03/12/25 Ultrasound #1 36w 0d 03/16/25 Ultrasound #2 35w 3d Office Procedures OB Clinic LOC & Office Proc's Nursing/Assessment Patient Status: Established Patient OB Clinic Nursing Assessment: Medication Reconciliation, Update PMH in EMR and Vital Signs OB Clinic Coordination of Care: AMA, Complex Care/Chronic Disease 5 or more, Consent,records obtained, informed consent, Education Simp Pt/Fam, Lab and Imaging orders, Results/Orders obtained and Staff clarify orders Special Needs: Heart tones Established Patient Charge Established Patient Point Assignment: 165 Established Patient Point Charge: EP Level 5 (160-above) Assessment & Plan Diagnosis / Problem List (1) Encounter for supervision of high risk in third trimester, antepartum: Status: Acute (2) Gestational diabetes, diet controlled: Status: Acute
[2025-02-12 11:40] VITALS: BP 143/98; PULSE 97; RESP 18; TEMP 36.3; O2SAT 97; BMI 41.8
== END 2025-02-12 12:05 | disposition home or self-care (01) ==
PROVIDERS: Supervising Provider Obstetrics & Gynecology; Visit Provider Obstetrics & Gynecology
DX: O09.893 Supervision of other high risk pregnancies, third trimester (principal); O24.410 Gestational diabetes mellitus in pregnancy, diet controlled; O09.513 Supervision of elderly primigravida, third trimester; O09.813 Supervision of pregnancy resulting from assisted reproductive technology, third trimester; O99.891 Other specified diseases and conditions complicating pregnancy; R03.0 Elevated blood-pressure reading, without diagnosis of hypertension; Z3A.35 35 weeks gestation of pregnancy; Z88.1 Allergy status to other antibiotic agents
CPT/HCPCS: 99215; G0463

== ENCOUNTER 2025-02-12 12:14 | Observation (INO) | payer BC, SELFPAY ==
[2025-02-12] VITALS (22 sets, daily range): BP systolic 126–176; BP diastolic 71–107; PULSE 75–96; RESP 16–98; TEMP 36.9; BMI 41.8
[2025-02-12 13:10] LABS: Basophils # (Auto) 0.0 Thou/mm3 (0.0-0.2); Basophils % (Auto) 0 % (0-2.5); Eosinophils # (Auto) 0.1 Thou/mm3 (0.0-0.5); Eosinophils % (Auto) 2 % (0-10); Hematocrit 34.6 % (36.0-46.0); Hemoglobin 11.8 g/dL (12.0-16.0); Immature Granulocytes Auto 0.02 Thou/mm3 (0.00-0.00); Lymphocytes # (Auto) 1.7 Thou/mm3 (1.0-4.8); Lymphocytes % (Auto) 25 % (10-50); Mean Corpuscular HGB Conc 34.1 g/dl (31.0-37.0); Mean Corpuscular Hemoglobin 29.9 pg (25.0-35.0); Mean Corpuscular Volume 88 fL (80-100); Monocytes # (Auto) 0.4 Thou/mm3 (0.0-0.8); Monocytes % (Auto) 6 % (0-12); Neutrophils # (Auto) 4.5 Thou/mm3 (1.8-7.7); Neutrophils % (Auto) 66 % (37-80); Nucleated Red Blood Cell # 0.00 Thou/mm3 (0.00-0.00); Nucleated Red Blood Cell % 0 /100 WBC (0); Platelet Count 238 Thou/mm3 (140-440); RDW Standard Deviation 41.0 fL (36.4-46.3); Red Blood Count 3.95 Miln/mm3 (4.00-5.20); White Blood Count 6.8 Thou/mm3 (3.6-11.0)
[2025-02-12 13:10] LABS: Collection Type, Urine Clean Catch
[2025-02-12 13:24] LABS: Bilirubin,Urine Negative (Negative); Blood,Urine Negative (Negative); Clarity,Urine Clear (Clear/Hazy); Color,Urine Lt-Yellow (Lt Yel-Yel); Glucose, Urine Negative (Negative); Ketones,Urine Negative (Negative); Leukocyte Esterase,Urine Negative (Negative); Nitrite,Urine Negative (Negative); PH,Urine 6.0 (5.0-7.0); Protein,Urine Negative (Neg - Trace); RBC,Urine 1 /hpf (0-3); Specific Gravity,Urine 1.015 (1.001-1.035); Squamous Epithelial Cell,Urine 4 /hpf (0-5); Urobilinogen,Urine Negative mg/dL (0.0-1.0); WBC,Urine 1 /hpf (0-5)
[2025-02-12 13:43] LABS: Alanine Aminotransferase < 7 U/L (10-49); Albumin, Serum 3.4 gm/dL (3.5-5.0); Albumin/Globulin Ratio 1.5 (1.2-2.2); Alkaline Phosphatase 140 U/L (46-116); Anion Gap 10 (7-16); Aspartate Amino Transferase 15 U/L (0-34); BUN/Creatinine Ratio 10 Ratio (12-20); Bilirubin,Total 0.4 mg/dL (0.3-1.2); Blood Urea Nitrogen < 5 mg/dL (9-23); Calcium 9.0 mg/dL (8.3-10.6); Calcium (Corrected) 9.5 mg/dL (8.5-10.1); Carbon Dioxide 22.3 mMol/L (20.0-31.0); Chloride 108 mMol/L (98-107); Creatinine (Component) 0.5 mg/dL (0.6-1.3); Globulin 2.2 gm/dL (2.3-3.5); Glucose 77 mg/dL (74-106); LDH (Lactate Dehydrogenase) 153 U/L (120-246); Osmolality,Calculated 275 (275-295); Potassium 3.7 mMol/L (3.4-5.1); Sodium 140 mMol/L (136-145); Total Protein 5.6 gm/dL (5.7-8.2); eGFR > 60 See Note
[2025-02-12 13:49] LABS: Fibrinogen 578 mg/dL (175-375); INR 0.9 (0.9-1.3); Partial Thromboplastin Time 28.5 Seconds (22.0-36.0); Prothrombin Time 10.0 Seconds (9.0-12.2)
[2025-02-12 13:53] LABS: Uric Acid 4.4 mg/dL (3.1-7.8)
[2025-02-12 15:46] LABS: Creatinine,Random Urine 109 mg/dL (30-125); Protein Total, Random Urine 22 mg/dL (1-14)
--- NOTE | 2025-02-12 17:02 | ESPR_ITS ---
Documentation for date of: 02/12/25 OB Labor Progress Note Assessment and Plan Comments: Triage Note Martha is a 40yo with SIUP at 35&3wk presenting to L&D from clinic for PIH workup. She had elevated bp in clinic. She notes that she often has elevated bp 's when she presents for her scheduled APFTs on L&D twice weekly, so RN will let her settle in and wait a bit before taking first bp. She has documented elevated bp on 02/05 as well. PIH labs that day were normal. She notes no painful/regular ctx, no vaginal bleeding, no lof. Normal movement. She denies headache, vision changes and RUQ pain. PNC/PMhx significant for: -Has care with Dr. Chavez -IVF -EDY (age 40) -Current BMI 41.8 -Desires elective PLTCS for delivery -New dx of GHTN ROS negative other than what was described above. Vitals wnl, afebrile General: well developed, well nourished, no acute distress, conversant Cardiac: normal heart rate Lungs: breathing without distress Abdomen: soft, gravid, non-tender, no rebound or guarding Extremities: trace edema BLE NST: Reactive, +accels, no decels, mod [place]: no regular ctx pattern Labs: Hgb 11.8 Plt 238 serum creat 0.5 AST/ALT wnl urine prot:creat 0.2 Assessment: Martha is a 40yo with SIUP at 35&3wk with new diagnosis of GHTN. NO evidence of pre-eclampsia at this time based on normal labs to include urine p:c 0.2. BP's are labile- she has overall mostly mild range with occa sional normal bp (130's/80's) and occasional severe non-sustained bp. She has no sx of pre-eclampsia. Benign exam. Reassuring status. Plan: -Discussed findings and provided reassurance, answered all questions to their apparent satisfaction -Labetalol 200mg PO BID prescribed. First dose given in triage with resultant normotensive bp's. -Patient has bp cuff at home. Instructed to take twice daily and keep log. Bring log and cuff to next visit to calibrate cuff and review bp's. -Continue routine follow up with OBGYN in 1 week, continue twice weekly antepartum testing on L&D -Discussed return precautions at length, especially for persistent headache, vision changes and RUQ pain Aurora Myers MD
[2025-02-12] MEDS: LABETALOL 100 MG TABLET 200 MG PO (17:07)
== END 2025-02-12 18:00 | disposition home or self-care (01) ==
PROVIDERS: Obstetrics & Gynecology; Admitting Provider Obstetrics & Gynecology; Visit Provider Obstetrics & Gynecology
DX: O13.3 Gestational [pregnancy-induced] hypertension without significant proteinuria, third trimester (principal); Z3A.35 35 weeks gestation of pregnancy
CPT/HCPCS: 36415; 59025; 59899; 80053; 81001; 82570; 83615; 84156; 84550; 85025; 85384; 85610; 85730; A9270

== ENCOUNTER 2025-02-19 11:03 | Outpatient (CLI) | payer BC, SELFPAY ==
[2025-02-19 11:05] VITALS: BP 134/93; PULSE 99; RESP 18; RESP 98; TEMP 36.9; BMI 40.9
== END 2025-02-19 11:55 | disposition home or self-care (01) ==
LOC: S4S1 11:04 → S4SX 11:05
PROVIDERS: PCP Obstetrics & Gynecology; Referring Provider Obstetrics & Gynecology; Visit Provider Obstetrics & Gynecology
DX: Z34.03 Encounter for supervision of normal first pregnancy, third trimester (principal); Z36.89 Encounter for other specified antenatal screening; Z3A.36 36 weeks gestation of pregnancy
CPT/HCPCS: 59025

== ENCOUNTER 2025-02-21 10:02 | Outpatient (RCR) | payer BC, SELFPAY ==
--- NOTE | 2025-01-17 10:22 | XR_ITS ---
Examination: Biophysical profile, ultrasound Date and time of exam: January 17, 2025 1055 hours INDICATIONS: Diagnosis advanced maternal age, diagnosis gestational diabetes Technique: Multiple transabdominal sonographic images of the pelvis abdomen obtained. Attention is directed to the breathing movement, gross body movement, amniotic fluid volume and tone. Findings: Amniotic fluid index 15.4 cm Total biophysical profile is 8 of 8. breathing movement is 2. Gross body movement is 2. tone is 2. Qualitative amniotic fluid volume is 2 Impression: Biophysical profile is 8 of 8.
[2025-01-17 11:18] VITALS: BP 133/83; PULSE 94; RESP 16; TEMP 36.7
--- NOTE | 2025-01-21 09:54 | XR_ITS ---
Examination: Biophysical profile, ultrasound Date and time of exam: January 21, 2025 1009 hours INDICATIONS: Diagnosis advanced maternal age, diagnosis gestational diabetes Technique: Multiple transabdominal sonographic images of the pelvis abdomen obtained. Attention is directed to the breathing movement, gross body movement, amniotic fluid volume and tone. Findings: Amniotic fluid index 8.8 cm Total biophysical profile is 8 of 8. breathing movement is 2. Gross body movement is 2. tone is 2. Qualitative amniotic fluid volume is 2 Impression: Biophysical profile is 8 of 8.
[2025-01-21 10:34] VITALS: BP 116/65; PULSE 92; RESP 16; TEMP 36.8
--- NOTE | 2025-01-24 09:49 | XR_ITS ---
Examination: Biophysical profile, ultrasound Date and time of exam: January 24, 2025 0950 hours INDICATIONS: Diagnosis gestational diabetes Technique: Multiple transabdominal sonographic images of the pelvis abdomen obtained. Attention is directed to the breathing movement, gross body movement, amniotic fluid volume and tone. Findings: Amniotic fluid index 16.6 cm Total biophysical profile is 8 of 8. breathing movement is 2. Gross body movement is 2. tone is 2. Qualitative amniotic fluid volume is 2 Impression: Biophysical profile is 8 of 8.
[2025-01-24 10:48] VITALS: BP 130/83; PULSE 93; RESP 16; TEMP 36.7
[2025-01-24 12:19] LABS: ROM Kit Lot # 58102387; ROM Swab Mixed By: PATTC1; Rupture of Fetal Membranes Negative (Negative); Swb Mxed in Solvent 1 min? Yes
--- NOTE | 2025-01-28 10:09 | XR_ITS ---
Examination: Biophysical profile, ultrasound Date and time of exam: January 28, 2025 1041 hours INDICATIONS: Gestational diabetes diagnosis Technique: Multiple transabdominal sonographic images of the pelvis abdomen obtained. Attention is directed to the breathing movement, gross body movement, amniotic fluid volume and tone. Findings: Amniotic fluid index 12.5 cm Total biophysical profile is 8 of 8. breathing movement is 2. Gross body movement is 2. tone is 2. Qualitative amniotic fluid volume is 2 Impression: Biophysical profile is 8 of 8.
[2025-01-28 11:04] VITALS: BP 116/72; PULSE 96; RESP 16
--- NOTE | 2025-01-31 10:13 | XR_ITS ---
Examination: Biophysical profile, ultrasound Date and time of exam: January 31, 2025 1031 hours INDICATIONS: Diagnosis IVF, diagnosis gestational diabetes Technique: Multiple transabdominal sonographic images of the pelvis abdomen obtained. Attention is directed to the breathing movement, gross body movement, amniotic fluid volume and tone. Findings: Amniotic fluid index 7.8 cm Total biophysical profile is 8 of 8. breathing movement is 2. Gross body movement is 2. tone is 2. Qualitative amniotic fluid volume is 2 Impression: Biophysical profile is 8 of 8.
[2025-01-31 10:47] VITALS: BP 128/74; PULSE 96; RESP 16; TEMP 36.7
--- NOTE | 2025-02-04 10:15 | XR_ITS ---
Examination: Biophysical profile, ultrasound Date and time of exam: February 04, 2025, 1028 hours INDICATIONS: Diagnosis gestational diabetes Technique: Multiple transabdominal sonographic images of the pelvis abdomen obtained. Attention is directed to the breathing movement, gross body movement, amniotic fluid volume and tone. Findings: Amniotic fluid index 11.1 cm Total biophysical profile is 8 of 8. breathing movement is 2. Gross body movement is 2. tone is 2. Qualitative amniotic fluid volume is 2 Impression: Biophysical profile is 8 of 8.
[2025-02-04 10:54] VITALS: BP 124/74; PULSE 96; RESP 16
--- NOTE | 2025-02-07 10:23 | XR_ITS ---
Examination: Biophysical profile, ultrasound Date and time of exam: February 07, 2025 1050 hrs. Indications: Diagnosis gestational diabetes Technique: Multiple transabdominal sonographic images of the pelvis abdomen obtained. Attention is directed to the breathing movement, gross body movement, amniotic fluid volume and tone. Findings: Amniotic fluid index 12.1 cm Total biophysical profile is 8 of 8. breathing movement is 2. Gross body movement is 2. tone is 2. Qualitative amniotic fluid volume is 2 Impression: Biophysical profile is 8 of 8.
[2025-02-07 11:15] VITALS: BP 125/79; PULSE 97; RESP 16
--- NOTE | 2025-02-14 10:17 | XR_ITS ---
Examination: Biophysical profile, ultrasound Date and time of exam: February 14, 2025 1020 hours INDICATIONS: Diagnosis gestational diabetes Technique: Multiple transabdominal sonographic images of the pelvis abdomen obtained. Attention is directed to the breathing movement, gross body movement, amniotic fluid volume and tone. Findings: Amniotic fluid index 12.0 cm Total biophysical profile is 8 of 8. breathing movement is 2. Gross body movement is 2. tone is 2. Qualitative amniotic fluid volume is 2 Impression: Biophysical profile is 8 of 8.
[2025-02-14 10:47] VITALS: BP 131/71; PULSE 82; RESP 16
--- NOTE | 2025-02-18 10:12 | XR_ITS ---
Examination: Biophysical profile, ultrasound Date and time of exam: February 18, 2025 1020 hours INDICATIONS: Diagnosis gestational diabetes Technique: Multiple transabdominal sonographic images of the pelvis abdomen obtained. Attention is directed to the breathing movement, gross body movement, amniotic fluid volume and tone. Findings: Amniotic fluid index 8.3 cm Total biophysical profile is 8 of 8. breathing movement is 2. Gross body movement is 2. tone is 2. Qualitative amniotic fluid volume is 2 Impression: Biophysical profile is 8 of 8.
[2025-02-18 10:40] VITALS: BP 101/59; PULSE 86; RESP 16
--- NOTE | 2025-02-21 10:07 | XR_ITS ---
Examination: Biophysical profile, ultrasound Date and time of exam: February 21, 2025 1037 hours INDICATIONS: Diagnosis gestational diabetes Technique: Multiple transabdominal sonographic images of the pelvis abdomen obtained. Attention is directed to the breathing movement, gross body movement, amniotic fluid volume and tone. Findings: Amniotic fluid index 8.3 cm Total biophysical profile is 8 of 8. breathing movement is 2. Gross body movement is 2. tone is 2. Qualitative amniotic fluid volume is 2 Impression: Biophysical profile is 8 of 8.
[2025-02-21 11:07] VITALS: BP 134/85; PULSE 88; RESP 16
== END 2025-02-21 23:59 | disposition home or self-care (01) ==
LOC: S4S1 10:02
PROVIDERS: PCP Nurse Practitioner Family; Referring Provider Obstetrics & Gynecology; Visit Provider Obstetrics & Gynecology
DX: O24.410 Gestational diabetes mellitus in pregnancy, diet controlled (principal); O09.513 Supervision of elderly primigravida, third trimester; O09.93 Supervision of high risk pregnancy, unspecified, third trimester; O09.813 Supervision of pregnancy resulting from assisted reproductive technology, third trimester; Z3A.36 36 weeks gestation of pregnancy
CPT/HCPCS: 59025; 76819; 84112

== ENCOUNTER 2025-02-21 14:37 | Outpatient (AMB) | payer BC, SELFPAY ==
[2025-02-21 14:48] VITALS: BP 162/105; PULSE 82; RESP 16; TEMP 36.2; O2SAT 98; BMI 41.4
--- NOTE | 2025-02-21 14:48 | OBCLNT_ITS ---
Vital Signs 02/21/25 14:48 Height 1.52 m Height Method Stated Weight 95.765 kg Weight Measurement Method Standing Scale BMI 41.4 BP 162/105 H Blood Pressure Source Automatic Cuff Blood Pressure Location Left Upper Arm Position Sitting Respiration 16 Pulse 82 Pulse Source Monitor Temp 97.2 F Temp Source Oral Pulse Oximetry (%) 98 Oxygen Delivery Method Room Air Allergies/Home Meds Allergies & Medications Allergies ciprofloxacin Allergy (Severe, Verified 02/21/25 14:48) ITICHING AND HIVES Medication Reconciliation folic acid 0.8 mg capsule 0.8 mg PO QDAY 11/30/24 [History Confirmed 02/21/25] vits no.126-ferrous fum 28 mg iron-folic acid 800 mcg tablet (Classic ) 1 tab PO QDAY 11/30/24 [History Confirmed 02/21/25] breast pump #1 ea 02/05/25 [Rx Confirmed 02/21/25] albuterol sulfate 90 mcg/actuation aerosol inhaler 2 puff inhalation Q6H PRN shortness of breath or wheezing #8.5 grams 02/21/25 [Rx] nifedipine 30 mg tablet,extended release 30 mg PO QDAY 30 days #30 tabs 02/21/25 [Rx] Intake Visit Data Collection New Patient or Established: Established Patient (seen at [facility] within 3 years) Reason for Visit:: OBC Seen by Clinical Staff ONLY (RN/MA): No Evp Marketing Required: No Do You Feel Safe at Home: Yes Authorities Contacted: N/A PCP or OBGYN visit in last 3 months: Yes Hx Now: Yes Are you currently on any form of Control: No Pain Present Currently: No Pain Scale Used: [place]/Numerical Pain scale:: 0 Smoking Status Smoking Status: Never smoker Questionnaires Covid-19 Vaccine Questionnaire Has patient been vacinated for Covid-19 Have you been vacinated for Covid-19: Yes PHQ-9 PHQ-2 Over the last 2 weeks, how often have you been bothered by any of the following problems? 1. Little interest or pleasure in doing things: not at all 2. Feeling down, depressed, or hopeless: not at all Total score: 0 PHQ-9 3. Trouble falling or staying asleep, or sleeping too much: Not at all 4. Feeling tired or having little energy: Not at all 5. Poor appetite or overeating: Not at all 6. Feeling bad about yourself - or that you are a failure or have let yourself or your family down: Not at all 7. Trouble concentrating on things, such as reading the newspaper or watching television: Not at all 8. Moving or speaking so slowly that other people could have noticed? - Or the opposite - being so fidgety or restless that you have been moving around a lot more than usual: not at all 9. Thoughts that you would be better off or of hurting yourself in some way: Not at all Total score: 0 If you checked off any problems, how difficult have these problems made it for you to do your work, take care of things at home, or get along with other people?: not difficult at all Source: Developed by Drs. Az Melara, Ankita Wheeler, William Alves and colleagues, with an educational robert from [employer]. Depression screen completed yes Social History Living Situation History Lives With: Family Housing: House Tobacco History Smoking Status: Never smoker Second Hand Smoke Exposure: No Alcohol History Alcohol Intake: Former Alcohol Intake Frequency: holidays/special occasions only Substance Use History Substance Use: no Domestic Abuse History Do You Feel Safe at Home: Yes [employer]: Past Medical History Past Medical History: Yes Hx Breast Cancer (grandmother), Yes Hx Hypertension (Father), No Hx Anemia, No Hx Renal Disease, No Hx Diabetes Mellitus Type 1 and No Hx Diabetes Mellitus Type 2 Care OB Visit Log OB Flowsheet Initial Weight: Not Recorded Date -?-?-?-?-?-?-?-?-?-?-?-?- EGA Weight BP Alb Glu CTX Pres Fundal ht FHR Mov Dilation Station Effacement Hx Notes Visit Note 09/13/24 -?-?-?-?-?-?-?-?-?-?-?-?- 13w 5d 91.399 kg 129/83 175 active OB New visit. IVF . Labs pending 10/15/24 -?-?-?-?-?-?-?-?-?-?-?-?- 18w 2d 93.667 kg 126/88 145 active Martha Stuart, 39 y/o at 19w0d gestation following IVF in [place], presents for routine visit. 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 Subchorionic hemorrhage from early now resolved. Denies CTX/LOF/VB; re ports good FM. FHR 138 bpm. Blood type A+, Ab screen negative, Hgb 11.8, plt 311,000. Rubella immune, OB labs normal. Plan: Follow-up in 4 weeks at 24w for GT T and review anatomy scan results (pend ing call from [employer] [employer]). Reassurance and supportive care for sciatica and neck symptoms: rest, neck ROM, warm/cold compress. Continue routine care and safety counseling. 11/15/24 -?-?-?-?-?-?-?-?-?-?-?-?- 22w 5d 94.574 kg 141/97 155 active 39yo @22w5d, IVF, good FM, ongoing cervical radiculopathy with hand/arm pain, FHT 155?160 bpm. Plan: 1hr glucose today, anatomy scan pending insurance, neck exercises, consider disability leave, PT and MRI , f/u in 2 weeks. 11/30/24 -?-?-?-?-?-?-?-?-?-?-?-?- 24w 6d 94.461 kg 132/84 occasional cephalic 24 142 active at 24w6d via IVF, elevated 1hr GTT 177, likely GDM. Has carpal tunnel, on disability. FHR 142, good FM. Plan: Start home glucose checks (fasting <100, 1hr post-meal <140), supplies to pharmacy. Anatomy scan 12/24, echo 12/31. F/u in 2w for glucose log, 4w for routine care. Printed records per release. 12/18/24 -?-?-?-?-?-?-?-?-?-?-?-?- 27w 3d 95.481 kg 132/90 absent unknown 25 158 active 27w3d here for routine visit. IVF , diet-controlled GDM with BG <100 fasting, occasional postprandial spikes with sweets. No CTX/LOF/VB, reports good FM. FHR 158. Plan: Continue BG monitoring, no meds. Emphasize protein/veggies before carbs, switch to diet soda, walk post meals. U/S 12/24, echo 01/07, f/u after 12/30. Delivery 39w?KEVIN. C/S if breech, otherwise pt to choose mode. 01/08/25 -?-?-?--?-?-?-?-?-?-?-?-?- 30w 3d 95.935 kg 132/89 absent transverse 30 active fetus active. denies leaking,bleeding, contractions. patient desire elective c/s. reports compliance with GDM diet, sugars at goal. c/o swelling of hands, deneis PIH complaints f/u with OB NV. discuss fkc bid. discuss PTL s/s. decrease salty foods. increas veggies and protein. hydrate. Urine culture to lab for c/o dysuria 01/22/25 -?-?-?-?-?-?-?-?-?-?-?-?- 32w 3d 95.368 kg 133/86 occasional breech 32 active - Experiencing pain since 1 AM today - Constant back pain, attributed to pr essure - Tightening sensations, possibly cont ractions - Frequency not specified, but noted as not bad - Discomfort and difficulty moving - Pain when stretching, particularly in upper area - Patient is scheduled for on January 31 due to breech presentation Patient reports contractions and back pa in. Reports good FM. Denies BELTRE, VC, and epigastric pain. - Patient to proceed to 4th floor [facility] for monitoring and evaluation - Nurses to be notified of patient's arr ival - Patient to be monitored and rechecked after 2 hours to assess for labor progression - If labor is progressing, patient may d eliver today - If not delivering today, scheduled C-s ection on January 31 at 12:30 PM ( patient to arrive at 10:00 AM) - No food, drink, or medications after m idnight the night before 02/12/25 -?-?-?-?-?-?-?-?-?-?-?-?- 35w 3d 97.069 kg 143/98 absent breech 35 a ctive - Martha Stuart is a 1 para 0 female at 35 weeks and 3 days gestation, presenting with severely elevated blood pressure. - Today's blood pressure is 173/131 mmHg . - Patient has been experiencing signific ant blood pressure spikes. - No reported symptoms: - Denies headaches - Denies visual symptoms - Denies contractions, cramping, or le aking - Reports active movement - Patient confirmed desire for primary - Sent in to Labor & Delivery for comprehensive pre-eclampsia evaluation - Serial blood pressure monitoring - Complete pre-eclampsia workup - Confirm primary preference w ith patient - Continue monitoring until definitive m anagement determined - If blood pressure remains severely loly vated, prepare for potential immediate delivery 02/21/25 -?-?-?-?-?-?-?-?-?-?-?-?- 36w 5d 95.765 kg 162/105 absent breech 36 145 active No contractions, LOF, VB and reports good FM. Denies BELTRE, VC, and epigastric pain. - Martha Stuart is a female wi th a history of IVF , presenting with elevated blood pressure consistent with preeclampsia without severe features. - Blood pressure was measured at 160 mmH g systolic today, indicating preeclampsia without severe features. - Patient stopped taking aspirin at 34 w eeks as previously advised by her IVF doctor. - No reported symptoms of headaches or f eeling unwell. - Patient instructed to be cautious of changes in movements. - Deliver at 37 weeks, scheduled for Tuesday at 7:30 AM - Restart labetalol 200 mg twice daily, or switch to Procardia XL once daily - Check-in at 5:30 AM on Tuesday for selina truong; NPO after 10 PM the night before - Blood pressure check tomorrow at 3 PM after starting Procardia - Monitor for movements, headaches , or feeling unwell; come to hospital if needed - No further appointments scheduled exce pt for tomorrow's blood pressure check KEVIN Calculator Estimated Delivery Date Method Current WG Current Estimate 03/16/25 LMP (Certain) 36w 6d Other Estimates 03/12/25 Ultrasound #1 37w 3d 03/16/25 Ultrasound #2 36w 6d Office Procedures OB Clinic LOC & Office Proc's Nursing/Assessment Patient Status: Established Patient OB Clinic Nursing Assessment: Medication Reconciliation, Update PMH in EMR and Vital Signs OB Clinic Coordination of Care: Education Complex Pt/Fam, Consent,records obtained, informed consent, Lab and Imaging orders, Results/Orders obtained and Staff clarify orders Special Needs: Heart tones Miscellaneous Interventions: Pelvic Comp w/OB cult Established Patient Charge Established Patient Point Assignment: 130 Established Patient Point Charge: EP Level 4 (120-155) Assessment & Plan Diagnosis / Problem List (1) Gestational hypertension: Status: Acute (2) Encounter for supervision of high risk in third trimester, antepartum: Status: Acute (3) conceived through in vitro fertilization: Status: Acute (4) Advanced maternal age, primigravida: Status: Acute
== END 2025-02-21 15:13 | disposition home or self-care (01) ==
LOC: HODSOBC 14:37
PROVIDERS: Supervising Provider Obstetrics & Gynecology; Visit Provider Obstetrics & Gynecology
DX: O09.513 Supervision of elderly primigravida, third trimester (principal); O09.813 Supervision of pregnancy resulting from assisted reproductive technology, third trimester; O09.893 Supervision of other high risk pregnancies, third trimester; O13.3 Gestational [pregnancy-induced] hypertension without significant proteinuria, third trimester; Z3A.36 36 weeks gestation of pregnancy; Z88.1 Allergy status to other antibiotic agents
CPT/HCPCS: 99214; G0463

== ENCOUNTER 2025-02-22 19:34 | Inpatient (IN) | payer BC, SELFPAY ==
[2025-02-22] VITALS (32 sets, daily range): BP systolic 0–188; BP diastolic 0–137; PULSE 75–130; RESP 14–20; TEMP 36.6–36.7; O2SAT 97–99; BMI 41.2
[2025-02-22 16:45] LABS: Collection Type, Urine Clean Catch
[2025-02-22 16:49] LABS: Basophils # (Auto) 0.0 Thou/mm3 (0.0-0.2); Basophils % (Auto) 0 % (0-2.5); Eosinophils # (Auto) 0.1 Thou/mm3 (0.0-0.5); Eosinophils % (Auto) 2 % (0-10); Hematocrit 37.9 % (36.0-46.0); Hemoglobin 12.8 g/dL (12.0-16.0); Immature Granulocytes Auto 0.03 Thou/mm3 (0.00-0.00); Lymphocytes # (Auto) 1.9 Thou/mm3 (1.0-4.8); Lymphocytes % (Auto) 26 % (10-50); Mean Corpuscular HGB Conc 33.8 g/dl (31.0-37.0); Mean Corpuscular Hemoglobin 29.4 pg (25.0-35.0); Mean Corpuscular Volume 87 fL (80-100); Monocytes # (Auto) 0.5 Thou/mm3 (0.0-0.8); Monocytes % (Auto) 7 % (0-12); Neutrophils # (Auto) 4.6 Thou/mm3 (1.8-7.7); Neutrophils % (Auto) 64 % (37-80); Nucleated Red Blood Cell # 0.00 Thou/mm3 (0.00-0.00); Nucleated Red Blood Cell % 0 /100 WBC (0); Platelet Count 309 Thou/mm3 (140-440); RDW Standard Deviation 40.0 fL (36.4-46.3); Red Blood Count 4.35 Miln/mm3 (4.00-5.20); White Blood Count 7.2 Thou/mm3 (3.6-11.0)
[2025-02-22 16:56] LABS: Bilirubin,Urine Negative (Negative); Blood,Urine Negative (Negative); Clarity,Urine Clear (Clear/Hazy); Color,Urine Lt-Yellow (Lt Yel-Yel); Glucose, Urine Negative (Negative); Ketones,Urine Negative (Negative); Leukocyte Esterase,Urine Negative (Negative); Nitrite,Urine Negative (Negative); PH,Urine 6.0 (5.0-7.0); Protein,Urine Negative (Neg - Trace); RBC,Urine 3 /hpf (0-3); Specific Gravity,Urine 1.009 (1.001-1.035); Squamous Epithelial Cell,Urine 1 /hpf (0-5); Urobilinogen,Urine Negative mg/dL (0.0-1.0); WBC,Urine < 1 /hpf (0-5)
[2025-02-22 17:00] LABS: Creatinine,Random Urine 54 mg/dL (30-125); Protein Total, Random Urine 18 mg/dL (1-14)
[2025-02-22 17:16] LABS: Alanine Aminotransferase 8 U/L (10-49); Albumin, Serum 3.6 gm/dL (3.5-5.0); Albumin/Globulin Ratio 1.4 (1.2-2.2); Alkaline Phosphatase 178 U/L (46-116); Anion Gap 11 (7-16); Aspartate Amino Transferase 19 U/L (0-34); BUN/Creatinine Ratio 8 Ratio (12-20); Bilirubin,Total 0.4 mg/dL (0.3-1.2); Blood Urea Nitrogen < 5 mg/dL (9-23); Calcium 9.1 mg/dL (8.3-10.6); Calcium (Corrected) 9.4 mg/dL (8.5-10.1); Carbon Dioxide 21.2 mMol/L (20.0-31.0); Chloride 108 mMol/L (98-107); Creatinine (Component) 0.6 mg/dL (0.6-1.3); Globulin 2.6 gm/dL (2.3-3.5); Glucose 70 mg/dL (74-106); LDH (Lactate Dehydrogenase) 206 U/L (120-246); Osmolality,Calculated 274 (275-295); Potassium 3.8 mMol/L (3.4-5.1); Sodium 140 mMol/L (136-145); Total Protein 6.2 gm/dL (5.7-8.2); Uric Acid 4.5 mg/dL (3.1-7.8); eGFR > 60 See Note
--- NOTE | 2025-02-22 18:08 | ESHP_ITS ---
Documentation for date of: 02/22/25 OB Labor/Induct. HPI History of Present Illness Chief complaint: elevated bp's in office : 1 Para: 0 Term pregnancies: 0 pregnancies: 0 Living children: 0 History of Abortions: Spontaneous and Elective: 0 History of Vaginal deliveries: 0 History of sections: No History of : No KEVIN: 03/16/25 Gestational Age (weeks): 36 Gestational Age (days): 6 History of present illness: Martha presents from the office for elevated bp's needing PIH workup. She had a headache last night that resolved. No vision changes. No RUQ pain. No ctx, lof or vb. Feels normal movement. Started on labetalol at 35wk for GHTN, switched to Nifedipine 2 days ago because she was having side effects (dizzy). Started to have congestion 2 days ago as well- no cough/fevers/chills/sore throat. She is unsure if it is related to allergies, new med or URI. History of Present Dating criteria: other (IVF) Adequate Care: Yes Abnormal ultrasound findings: VSD, confirmed on echo Narrative: -GHTN on nifedipine 30mg XL QD -current BMI 41.2 -AMA, age 40 -A1GDM - via IVF - VSD Labs Maternal Blood Type: A Pos Labs: Positive: Rubella Titre, Negative: RPR, Hepatitis B and HIV and Unknown: Group Beta Strep Review of Systems Review of Systems Narrative Review of Systems: Review of Systems Systems Reviewed: All systems reviewed, normal except as documented Constitutional Constitutional: Denies body ache(s), Denies chills, Denies fever(s) and Denies headache(s) ENT Ears, Nose, Mouth, and Throat: Denies headache(s) and Denies vertigo Cardiovascular Cardiovascular: Denies chest pain, Denies palpitations, Denies dyspnea and Denies syncope Respiratory Respiratory: Denies cough, Denies dyspnea Gastrointestinal Gastrointestinal: Denies nausea and Denies vomiting Neurologic Neurologic: Denies convulsions, Denies headache(s), Denies other visual disturbances, Denies syncope and Denies vertigo Past Medical History Family History OTHER FAMILY HX: non-contributory Surgical History SURGICAL: Negative Section OTHER SURGICAL HX: right elbow, cholecystectomy 2010 Social History SOCIAL: . No tobacco/ETOH/illicit substance use Past Medical History Comments PMH COMMENT: BMI 41.2 currently Hx of diverticultitis (1 episode) Asthma, seasonal allergies Alopecia Meds Home Medications and Allergies Home Medications ?Medication ?Instructions ?Recorded ?Confirmed ?Type folic acid 0.8 mg capsule 0.8 mg PO QDAY 11/30/2402/11 History vits no.126-ferrous fum 1 tab PO QDAY 5 02/22/25 History 28 mg iron-folic acid 800 mcg tablet (Classic ) Allergies Allergy/AdvReac Type Severity Reaction Status Date / Time ciprofloxacin Allergy Severe ITICHING Verified 02/22/25 18:01 AND HIVES OB Exam Physical Exam Vital signs: Pulse BP 92 173/137 H 02/22/25 18:02 02/22/25 18:02 Narrative: General: well developed, well nourished, no acute distress, conversant Cardiac: normal heart rate Lungs: breathing without distress Abdomen: soft, gravid, non-tender, no rebound or guarding Extremities: trace edema BLE Detailed Labor and Delivery Exam Membranes: intact monitor accelerations: 15x15 monitor decelerations: None terminal superintendent variability: Moderate (11-25) OB Results Labs 02/22/25 16:08 02/22/25 16:08 Labs: Short CBC 02/22/25 Range/Units 16:08 WBC 7.2 (3.6-11.0) Thou/mm3 Hgb 12.8 (12.0-16.0) g/dL Hct 37.9 (36.0-46.0) % Plt Count 309 D (140-440) Thou/mm3 BMP 02/22/25 16:08 Sodium 140 Potassium 3.8 Chloride 108 H Carbon Dioxide 21.2 BUN < 5 L Creatinine 0.6 Glucose 70 L Calcium 9.1 Liver Function 02/22/25 Range/Units 16:08 Total Bilirubin 0.4 (0.3-1.2) mg/dL AST 19 (0-34) U/L ALT 8 L (10-49) U/L Alkaline Phosphatase 178 H (46-116) U/L Albumin 3.6 (3.5-5.0) gm/dL Urine 02/22/25 Range/Units 15:25 Urine Color Lt-Yellow (Lt Yel-Yel) Urine Clarity Clear (Clear/Hazy) Urine pH 6.0 (5.0-7.0) Ur Specific [place] 1.009 (1.001-1.035) Urine Protein Negative (Neg - Trace) Urine Glucose (UA) Negative (Negative) OB Assessment & Plan Assessment and Plan (1) Pre-eclampsia, severe, third trimester: Status: Acute Assessment and plan: Martha is a 40yo with SIUP at 36&6wk with new diagnosis of pre-eclampsia WITH severe features based on recurrent severe range bp's and urine p:c 0.33. Hgb 12.8, plt 309, LFTs wnl, creat 0.6 Benign exam. Reassuring assessment. PMhx/ complicated by: -pre-eclampsia with severe features (previously GHTN on nifedipine 30mg XL QD) -current BMI 41.2 -AMA, age 40 -A1GDM - via IVF - VSD. Follow up echo after delivery as indicated. Indication for section: elective, previously discussed in office and this is chosen delivery mode Plan: -Admit to L&D -Establish IV. Hydralazine 5mg IV x1 now. -IV MgSO4 4g/2g with neuro checks and Mg levels. Will continue 24hr post-op. -NPO (last ate at 0930) -Counseled/consented re: section. Discussed all r/b/a to include: bleeding (possible need for blood transfusion), infection (subcutaneous, deeper layers or uterine with possible need for prolonged admission or re-admission for IV antibiotics, I&D with wound packing, etc), injury to nearby structures such as bladder, bowel, ureters, blood vessels, nerves with possible need for re- operation, pain, injury to baby, hysterectomy, DVT/PE, . Answered all questions to patient and their support person's satisfaction. -IV abx ppx: ancef 3g IV -Covid swab (congestion) -Nursing and anesthesia team aware of plan for section. Will proceed to OR when team is ready (2) Gestational diabetes, diet controlled: Status: Acute (3) Encounter for supervision of high risk in third trimester, antepartum: Status: Acute (4) Advanced maternal age, primigravida: Status: Acute (5) conceived through in vitro fertilization: Status: Acute (6) Obesity affecting in third trimester: Status: Acute (2) Gestational diabetes, diet controlled Qualifiers: Trimester: third trimester Qualified Code(s): O24.410 - Gestational diabetes mellitus in , diet controlled (4) Advanced maternal age, primigravida Qualifiers: Trimester: third trimester Qualified Code(s): O09.513 - Supervision of elderly primigravida, third trimester (5) conceived through in vitro fertilization Qualifiers: Trimester: third trimester Qualified Code(s): O09.813 - Supervision of resulting from assisted reproductive technology, third trimester (6) Obesity affecting in third trimester Qualifiers: Obesity type affecting : unspecified obesity Qualified Code(s): O 99.213 - Obesity complicating , third trimester
[2025-02-22] MEDS: Magnesium Sulfate 4 GM Ivpb 4 GM/50 ML BAG IV (18:30)
[2025-02-22 18:36] LABS: Syphilis Nonreactive (Nonreactive)
[2025-02-22 18:58] LABS: Magnesium 1.7 mg/dL (1.6-2.6)
[2025-02-22] MEDS: MAGNESIUM SULF 20 GM IVPB 20 GM/500 ML BAG IV (18:59)
[2025-02-22 19:11] LABS: COVID-19 Antigen (In-House) Negative (Negative)
[2025-02-22] MEDS: ONDANSETRON INJ 2 MG/ML INJ 2 ML 4 MG IVP (19:43)
[2025-02-22] MEDS: FAMOTIDINE INJ 10 MG/ML VIAL 2 ML 20 MG IV (19:44)
[2025-02-22] MEDS: ceFAZolin/D5W 2 GM IV 2 GM/100 ML BAG IV (19:45)
[2025-02-22] MEDS: ceFAZolin/D5W 1 GM IVPB 1 GM/50 ML BAG IV (19:55)
--- NOTE | 2025-02-22 19:55 | PC.NURSE ---
Per Dr. Myers order stop IV Mag during section and resume after section is done.
[2025-02-22 20:21] LABS: HIV (1&2) Antibody Rapid Non-Reactive
[2025-02-22 21:08] LABS: Magnesium 3.0 mg/dL (1.6-2.6)
--- NOTE | 2025-02-22 21:30 | PC.NURSE ---
Mag IV re-started, pt in rm 464 after section, v/s WNL, recovery started at 2126
--- NOTE | 2025-02-22 21:47 | PD.GYNPROC ---
Operative Note - SUSPENSION CORD TIER Procedure Date of procedure: 02/22/25 Procedure Performed: Primary Low Transverse Section Indication: Martha is a 40yo with SIUP at 36&6wk with new diagnosis of pre-eclampsia WITH severe features based on recurrent severe range bp's and urine p:c 0.33. She desired section as delivery mode- was previously counseled in the office and it was the established plan of care. Pre-Op diagnosis: SIUP at 36w6d Pre-eclampsia WITH severe features based on recurrent severe range blood pressures Desire for primary low transverse section, declines labor Current BMI 41.2 AMA, age 40 A1GDM via IVF Post-Op diagnosis: SIUP at 36w6d Pre-eclampsia WITH severe features based on recurrent severe range blood pressures Desire for primary low transverse section, declines labor Current BMI 41.2 AMA, age 40 A1GDM via IVF Anesthesia type: Spinal Fluids: crystalloid and other (albumin) Fluid amount (mL): 1,100 (+250ml albumin) Urine output (mL): 200 Specimen: other (placenta and cord not sent to pathology) Estimated blood loss (ml): 550 Findings: Female in OT presentation, apgars 7/9, weight 6lb4oz, TOB 2035, clear fluid. Uterus left in situ for repair given patient's stated hx of diverticulitis. Complications: none Narrative: After obtaining informed consent, the patient was taken to the operating room. There was reassuring heart rate tracing prior. Spinal anesthesia was administered. A mackenzie catheter was placed and bilateral sequential compression devices were placed. She was then prepped and draped in the normal sterile fashion in the dorsal supine position with left lateral tilt. A timeout was performed to confirm patient name, date of , procedure and indication. The team was in agreement. Spinal anesthesia was found to be adequate using an Allis clamp. Anceph 3g IV x1 were given for prophylaxis. A Pfannenstiel skin incision was then made with the scalpel and carried through to the underlying layer of fascia. The fascia was incised in the midine and the incision was extended laterally with the Pillai scissors. The superior and inferior aspects of the fascial incision were then grasped with the Jackie clamps, elevated and the underlying rectus muscles were dissected off bluntly and sharply. The peritoneum was entered digitally and the rectus muscles were then in the midline. The peritoneal incision was then extended superiorly and inferiorly with good visualization of the bladder. An Navid retractor was placed and the vesicouterine peritoneum was then identified, grasped with the pickups, and entered sharply with the Metzenbaum scissors. The incision was extended laterally and the bladder flap created digitally. The lower uterine segment was scored in a transverse fashion with the scalpel. The uterus was then entered bluntly and the incision was extended with traction with clear amniotic fluid noted. The 's head was elevated to the level of the incision. Fundal pressure was applied. The head was delivered atraumatically in the OA position. The anterior shoulder, posterior shoulder and corpus were delivered without difficulty. The nose and mouth were suctioned with bulb suction and cord was clamped x2 and cut. Infant was vigorous. The infant was handed off to the awaiting nursing team. Cord blood obtained for typing. The placenta was then removed with uterine massage and cord traction. The uterus was left in-situ and cleared of all clot and debris. Cervix opened with ring forceps. The uterine incision was repaired with 0-monocryl suture in a running locking fashion. A second layer of interrupted sutures using O-vicryl was used to closed the hysterotomy incision in an imbricating fashion. The uterine incision was inspected and hemostasis was noted. In addition to standard IV pitocin, patient received TXA 1g IV x1 and methergine 0.2mg IM x1 with good tone achieved and maintained. Surgicel snow placed overlying repaired hysterotomy. The gutters were cleared of all clot. Navid retractor was removed. The peritoneum was closed using a 3-0 vicryl suture in running fashion. The rectus muscles were inspected and small areas of oozing were cauterized. The fascia was reapproximated with 0-Vicryl suture in a running fashion. The subcutaneous tissue was then copiously irrigated. Cecille's fascia was reapproximated using 3-0 vicryl suture in a running fashion in 2 layers. Skin was reapproximated with 4-0 monocryl suture in running subcuticular fashion. The incision was cleaned with a wet lap and dried with a dry lap. Sulaovxen-kycekynojvg-iuuy bandage was applied overlying the incision and activated according to manager of sustainability instructions. Fundus was firm at U-1cm. Sponge, lap and needle counts were correct x2. The procedure was without complications and the patient tolerated the procedure well. She was taken to recover further on Labor and Delivery, in stable condition. Surgical staff Operation Date: 02/22/25 20:30 Case Staff LEAVE MANAGER: Hakeem Ramirez RN First Assistant: Fouzia Hampton Diagnosis Discharge Diagnosis (1) delivery delivered: Status: Acute (2) Pre-eclampsia, severe, third trimester: Status: Acute (3) Obesity affecting in third trimester: Status: Acute (4) Gestational diabetes, diet controlled: Status: Acute (5) Advanced maternal age, primigravida: Status: Acute (6) Encounter for supervision of high risk in third trimester, antepartum: Status: Acute (7) conceived through in vitro fertilization: Status: Acute Problem List Completed Was Problem List Reviewed/Reconciled?: Yes (3) Obesity affecting in third trimester Qualifiers: Obesity type affecting : unspecified obesity Qualified Code(s): O99.213 - Obesity complicating , third trimester (4) Gestational diabetes, diet controlled Qualifiers: Trimester: third trimester Qualified Code(s): O24.410 - Gestational diabetes mellitus in , diet controlled (5) Advanced maternal age, primigravida Qualifiers: Trimester: third trimester Qualified Code(s): O09.513 - Supervision of elderly primigravida, third trimester (7) conceived through in vitro fertilization Qualifiers: Trimester: third trimester Qualified Code(s): O09.813 - Supervision of resulting from assisted reproductive technology, third trimester
[2025-02-22] MEDS: ACETAMINOPHEN 325 MG TABLET 650 MG PO (23:06)
[2025-02-23] VITALS (19 sets, daily range): BP systolic 121–149; BP diastolic 78–99; PULSE 73–91; RESP 16–99; TEMP 36.6–37.2; O2SAT 95–99
[2025-02-23] MEDS: KETOROLAC INJ 30 MG/ML VIAL IVP ×3 (04:12→16:13)
[2025-02-23] MEDS: OXYTOCIN in NS 20 units 20 UNIT/1,000 ML BAG 125 UNIT IV (05:22)
[2025-02-23] MEDS: MAGNESIUM SULF 20 GM IVPB 20 GM/500 ML BAG IV ×2 (05:22→16:13)
[2025-02-23] MEDS: ceFAZolin/D5W 2 GM IV 2 GM/100 ML BAG IV (06:04)
[2025-02-23 07:00] LABS: Basophils # (Auto) 0.0 Thou/mm3 (0.0-0.2); Basophils % (Auto) 0 % (0-2.5); Eosinophils # (Auto) 0.1 Thou/mm3 (0.0-0.5); Eosinophils % (Auto) 1 % (0-10); Hematocrit 33.3 % (36.0-46.0); Hemoglobin 11.3 g/dL (12.0-16.0); Immature Granulocytes Auto 0.01 Thou/mm3 (0.00-0.00); Lymphocytes # (Auto) 1.2 Thou/mm3 (1.0-4.8); Lymphocytes % (Auto) 17 % (10-50); Mean Corpuscular HGB Conc 33.9 g/dl (31.0-37.0); Mean Corpuscular Hemoglobin 29.4 pg (25.0-35.0); Mean Corpuscular Volume 87 fL (80-100); Monocytes # (Auto) 0.4 Thou/mm3 (0.0-0.8); Monocytes % (Auto) 5 % (0-12); Neutrophils # (Auto) 5.5 Thou/mm3 (1.8-7.7); Neutrophils % (Auto) 77 % (37-80); Nucleated Red Blood Cell # 0.00 Thou/mm3 (0.00-0.00); Nucleated Red Blood Cell % 0 /100 WBC (0); Platelet Count 248 Thou/mm3 (140-440); RDW Standard Deviation 39.5 fL (36.4-46.3); Red Blood Count 3.84 Miln/mm3 (4.00-5.20); White Blood Count 7.2 Thou/mm3 (3.6-11.0)
[2025-02-23 07:40] LABS: Magnesium 4.4 mg/dL (1.6-2.6)
[2025-02-23] MEDS: DOCUSATE SOD 100 MG CAPSULE PO ×2 (08:16→21:02)
[2025-02-23] MEDS: ACETAMINOPHEN 325 MG TABLET 650 MG PO ×2 (08:16→21:01)
[2025-02-23] MEDS: NIFEdipine XL 30 MG TABCR PO (08:16)
[2025-02-23 08:33] LABS: Chlamydia trachomatis PCR Negative (Not Detect); Neisseria Gonorrhoeae DNA PCR Negative (Not Detect); Trichomonas Negative (Negative)
--- NOTE | 2025-02-23 10:05 | ESPR_ITS ---
Subjective Subjective Interval history: Patient doing well overall. Pain is controlled. She is on bedrest with IV MgSO4 for severe pre-eclampsia. Mackenzie in place draining clear yellow urine. Tolerating regular diet without nausea/vomiting. No fevers/chills, no CP/SOB. Has a bit of a sinus headache from sinus congestion (no sore throat or cough), but no vision changes or RUQ pain. Exam Vital Signs Temp Pulse Resp BP Pulse Ox O2 Del Method 97.9 F 78 18 130/92 H 97 Room Air 02/23/25 08:00 02/23/25 08:16 02/23/25 08:00 02/23/25 08:16 02/23/25 08:00 02/23/25 08:00 Narrative Exam General: well developed, well nourished, no acute distress, conversant Cardiac: normal heart rate Lungs: breathing without distress Abdomen: soft, post-gravid, non-tender, no rebound or guarding, pfannenstiel incision covered by dry/clean/intact prineo bandage. Incision well reapproximated. No erythema, drainage or induration. Fundus firm at u-2cm. Extremities: no pain with palpation of calves, trace edema of BLE, SCDs on and functioning Objective Labs 02/23/25 06:30 02/22/25 16:08 Labs: Laboratory Results - last 24 hr 02/22/25 02/22/25 02/22/25 15:25 16:08 18:23 WBC 7.2 RBC 4.35 Hgb 12.8 Hct 37.9 MCV 87 MCH 29.4 MCHC 33.8 RDW Std Deviation 40.0 Plt Count 309 D Neut % (Auto) 64 Lymph % (Auto) 26 [place] % (Auto) 7 Eos % (Auto) 2 Baso % (Auto) 0 Neut # (Auto) 4.6 Lymph # (Auto) 1.9 [place] # (Auto) 0.5 Eos # (Auto) 0.1 Baso # (Auto) 0.0 Immature Gran # (Auto) 0.03 H Absolute Nucleated RBC 0.00 Immature Gran % 0 Nucleated RBC % 0 Sodium 140 Potassium 3.8 Chloride 108 H Carbon Dioxide 21.2 Anion Gap 11 BUN < 5 L Creatinine 0.6 Estim Creat Clear Calc Not Performed. eGFR > 60 BUN/Creatinine Ratio 8 L Glucose 70 L Calculated Osmolality 274 L Uric Acid 4.5 Calcium 9.1 Corrected Calcium 9.4 Magnesium 1.7 Total Bilirubin 0.4 AST 19 ALT 8 L Alkaline Phosphatase 178 H Lactate Dehydrogenase 206 Total Protein 6.2 Albumin 3.6 Globulin 2.6 Albumin/Globulin Ratio 1.4 Ur Collection Type Clean Catch Urine Color Lt-Yellow Urine Clarity Clear Urine pH 6.0 Ur Specific [place] 1.009 Urine Protein Negative Urine Glucose (UA) Negative Urine Ketones Negative Urine Blood Negative Urine Nitrite Negative Urine Bilirubin Negative Urine Urobilinogen (Auto) Negative Ur Leukocyte Esterase Negative Urine RBC 3 Urine WBC < 1 Ur Squamous Epith Cells 1 Urine Bacteria None Ur Random Creatinine 54 U Random Total Protein 18 H Syphilis Serology Nonreactive Chlam trachomat DNA PCR Negative HIV 1&2 Antibody Rapid Non-Reactive N.gonorrhoeae DNA (PCR) Negative SARS-CoV-2 Ag (Rapid) Negative Trichomonas DNA Probe Negative Blood Type Antibody Screen Blood Bank Wristband ID 02/22/25 02/22/25 02/23/25 18:34 20:23 06:30 WBC 7.2 RBC 3.84 L Hgb 11.3 L Hct 33.3 L MCV 87 MCH 29.4 MCHC 33.9 RDW Std Deviation 39.5 Plt Count 248 D Neut % (Auto) 77 Lymph % (Auto) 17 [place] % (Auto) 5 Eos % (Auto) 1 Baso % (Auto) 0 Neut # (Auto) 5.5 Lymph # (Auto) 1.2 [place] # (Auto) 0.4 Eos # (Auto) 0.1 Baso # (Auto) 0.0 Immature Gran # (Auto) 0.01 H Absolute Nucleated RBC 0.00 Immature Gran % 0 Nucleated RBC % 0 Sodium Potassium Chloride Carbon Dioxide Anion Gap BUN Creatinine Estim Creat Clear Calc eGFR BUN/Creatinine Ratio Glucose Calculated Osmolality Uric Acid Calcium Corrected Calcium Magnesium 3.0 H 4.4 H Total Bilirubin AST ALT Alkaline Phosphatase Lactate Dehydrogenase Total Protein Albumin Globulin Albumin/Globulin Ratio Ur Collection Type Urine Color Urine Clarity Urine pH Ur Specific [place] Urine Protein Urine Glucose (UA) Urine Ketones Urine Blood Urine Nitrite Urine Bilirubin Urine Urobilinogen (Auto) Ur Leukocyte Esterase Urine RBC Urine WBC Ur Squamous Epith Cells Urine Bacteria Ur Random Creatinine U Random Total Protein Syphilis Serology Chlam trachomat DNA PCR HIV 1&2 Antibody Rapid N.gonorrhoeae DNA (PCR) SARS-CoV-2 Ag (Rapid) Trichomonas DNA Probe Blood Type A Positive Antibody Screen NEGATIVE Blood Bank Wristband ID Yes Assessment & Plan Problem List (1) delivery delivered: Status: Acute Assessment and plan: Martha is a 40yo [id number] s/p uncomplicated elective PLTCS at 36w6d for pre- eclampsia WITH severe features (based on severe range bp's), doing well on POD 1. (Delivery at 2034 on 02/22.) BPs are normal to mild range, no s/sx of worsening pre-E. Benign exam. Hemodynamically stable with no evidence of infection. Appropriate change in Hgb from 12.8 to 11.3. complicated by: Pre-eclampsia WITH severe features based on recurrent severe range blood pressures Current BMI 41.2 AMA, age 40 A1GDM via IVF Plan: -Continue routine /post-op care -Continue IV MgSO4 2g/hr with neuro and Mg checks per protocol. IV MgSO4 to continue until 2034 on 02/23. -Bedrest with mackenzie catheter until IV MgSO4 is discontinued. SCDs. -Regular diet -Toradol 30mg IV Q6hr x4 doses, then motrin 800mg PO Q8hr with norco 5/325mg PO Q6hr prn pain -Encourage use of IS -Continue to closely observe bp's. (2) Pre-eclampsia, severe, third trimester: Status: Acute (3) Obesity affecting in third trimester: Status: Acute (4) Gestational diabetes, diet controlled: Status: Acute (5) Advanced maternal age, primigravida: Status: Acute (6) Encounter for supervision of high risk in third trimester, antepartum: Status: Acute (7) conceived through in vitro fertilization: Status: Acute Time Spent With Patient Time: Total time spent is greater than 50% in coordination of care (as documented) at patient's floor/unit and/or counseling patient:
[2025-02-23 13:30] LABS: Magnesium 4.9 mg/dL (1.6-2.6)
[2025-02-23 18:39] LABS: Magnesium 4.7 mg/dL (1.6-2.6)
[2025-02-23] MEDS: RINGERS LACTATED 1000 ML 1,000 ML 100 ML IV (21:01)
--- NOTE | 2025-02-23 21:59 | PC.NURSE ---
02/23/25 2105 [facility] [place] d/c
[2025-02-24] VITALS (9 sets, daily range): BP systolic 142–163; BP diastolic 85–101; PULSE 77–95; RESP 18–19; TEMP 36.9–37.1; O2SAT 96–97
[2025-02-24] MEDS: KETOROLAC INJ 30 MG/ML VIAL IVP (00:13)
[2025-02-24] MEDS: IBUPROFEN TAB 400 MG TABLET 800 MG PO ×2 (05:59→18:09)
[2025-02-24] MEDS: DOCUSATE SOD 100 MG CAPSULE PO ×2 (08:35→20:14)
[2025-02-24] MEDS: NIFEdipine XL 30 MG TABCR PO ×3 (08:35→20:14)
[2025-02-24] MEDS: ENOXAPARIN SOD INJ 40 MG/0.4 ML SYRINGE SC (10:30)
--- NOTE | 2025-02-24 10:43 | ESDS_ITS ---
DS: Providers Provider Date of admission: 02/22/25 19:34 Primary care physician: Physician No Primary/Family Admitting Provider: Aurora Myers MD Attending Provider on Admission: Aurora Myers MD Consults: 02/22/25 21:38 Referral Routine Comment: Attending Provider on DC: Aurora Myers MD Discharging Provider: Aurora Myers MD DS: Diagnosis Discharge Diagnosis (1) delivery delivered: Status: Acute (2) Pre-eclampsia, severe, third trimester: Status: Acute (3) Obesity affecting in third trimester: Status: Acute (4) Gestational diabetes, diet controlled: Status: Acute (5) Advanced maternal age, primigravida: Status: Acute (6) conceived through in vitro fertilization: Status: Acute Problem List Completed Was Problem List Reviewed/Reconciled?: Yes Summary/Hosp Course Brief History: Martha is a 40yo [id number] s/p uncomplicated section at 36&6wk for pre- eclampsia with severe features based on severe recurrent bp's, delivering at 2034 on 02/22. She received IV MgSO4 for 24hr . She has had an uncomplicated post-operative course, meeting all milestones and feels ready for discharge home. She is ambulating without lightheadedness, tolerating regular diet no n/v, spontaneously voiding without issue. She has no chest pain or shortness of breath. No fevers or chills. Pain well controlled. Mild range bp's on Nifedipine 30mg XL PO QD. Benign exam. Hemodynamically stable with no evidence of infection. Post-op Hgb 11.3. Peripartum Data Delivery Method: Low Transverse Episiotomy Description: None Procedures: Procedures Operation Date: 02/22/25 20:30 Actual Procedure Side Surgeon p in OB Aurora Myers MD Status at Discharge Functional status at discharge: independent ambulation Overall status at discharge: patient is back to baseline Time Spent with Patient Time attestation: Total time spent providing and/or coordinating discharge services: Exam Vital Signs Temp Pulse Resp BP Pulse Ox O2 Del Method 98.4 F 77 18 144/88 H 97 Room Air 02/24/25 07:20 02/24/25 08:35 02/24/25 07:20 02/24/25 08:35 02/24/25 07:20 02/24/25 07:20 Narrative Exam General: well developed, well nourished, no acute distress, conversant Cardiac: normal heart rate Lungs: breathing without distress Abdomen: soft, post-gravid, non-tender, no rebound or guarding, pfannenstiel incision covered by dry/clean/intact prineo bandage. Incision well reapproximated. No erythema, drainage or induration. Fundus firm at u-2cm. Extremities: no pain with palpation of calves, trace edema of BLE Discharge Plan Plan Patient Disposition: HOME (Self Care) Patient condition on transfer: Stable Prescriptions/Referrals Prescriptions/Med Rec: New docusate sodium 100 mg Capsule 100 mg PO BID 10 Days Qty: 20 0RF hydrocodone-acetaminophen 5-325 mg Tablet 1 tab PO Q6H MDD 4 tablets PRN (Reason: Patient rated pain 7 to 8) 7 Days Qty: 10 0RF ibuprofen 800 mg tablet 800 mg PO Q8HR 10 Days Qty: 30 0RF nifedipine 30 mg Tablet Extended Release 24hr 30 mg PO QDAY 30 Days Qty: 30 0RF Continued Classic 28 mg iron- 800 mcg tablet 1 tab PO QDAY folic acid 0.8 mg capsule 0.8 mg PO QDAY Discontinued nifedipine 30 mg tablet extended release 30 mg PO QDAY 30 Days Qty: 30 0RF No Action (DME) breast pump Device See Rx Instructions .Route Qty: 1 0RF Rx Instructions: As directed Referrals: No Primary/Family,Physician [Primary Care Provider] Patient/Caregiver Discharge Instructions Discharge Activity: activity as tolerated and other Other Discharge Activity Instructions:: vaginal rest and no heavy lifting more than 10 pounds for 6 weeks. keep incision clean and dry, do not submerge. no driving while taking narcotics. Other Discharge Diet Instructions: regular Education Materials: Understanding Preeclampsia, After a Print Language: Mont[place]in Activity Restrictions/Additional Instructions: follow up with Dr. Chavez in 1 week for bp check and incision check, call clinic for appointment Stand Alone Forms: Patient Portal Info Letter Discharge Order Discharge Orders: Discharge (Routine); Ordered 02/24/25 Ordered By: Aurora Myers Planned Discharge Date 02/24/25 (3) Obesity affecting in third trimester Qualifiers: Obesity type affecting : unspecified obesity Qualified Code(s): O99.213 - Obesity complicating , third trimester (4) Gestational diabetes, diet controlled Qualifiers: Trimester: third trimester Qualified Code(s): O24.410 - Gestational diabetes mellitus in , diet controlled (5) Advanced maternal age, primigravida Qualifiers: Trimester: third trimester Qualified Code(s): O09.513 - Supervision of elderly primigravida, third trimester (6) conceived through in vitro fertilization Qualifiers: Trimester: third trimester Qualified Code(s): O09.813 - Supervision of resulting from assisted reproductive technology, third trimester
[2025-02-24] MEDS: HYDROcodone/APAP 5/325 TABLET 1 TAB PO (12:41)
[2025-02-24 20:05] LABS: Hepatitis B Surface Antigen Non Reactive (Non React); Rubella, IgG Antibody Reactive (Immune)
[2025-02-25] VITALS: BP 152/96; PULSE 105
[2025-02-25] MEDS: IBUPROFEN TAB 400 MG TABLET 800 MG PO ×2 (02:11→10:27)
[2025-02-25 03:44] VITALS: BP 148/99; PULSE 102; RESP 18; TEMP 36.8; O2SAT 98
[2025-02-25 07:50] VITALS: BP 153/88; PULSE 87; RESP 18; TEMP 36.7; O2SAT 96
[2025-02-25 08:33] VITALS: BP 148/94; PULSE 101
[2025-02-25] MEDS: ENOXAPARIN SOD INJ 40 MG/0.4 ML SYRINGE SC (08:33)
[2025-02-25] MEDS: NIFEdipine XL 30 MG TABCR 60 MG PO (08:33)
[2025-02-25] MEDS: DOCUSATE SOD 100 MG CAPSULE PO (08:33)
[2025-02-25 11:50] VITALS: BP 134/84; PULSE 80; RESP 18; O2SAT 97
== END 2025-02-25 13:30 | disposition home or self-care (01) | DRG 788 ==
LOC: S4S1 19:35 → S4SX 19:41 → S4NX 20:57 → S4SX 02-25 05:39
PROVIDERS: Admitting Provider Obstetrics & Gynecology; Referring Provider Obstetrics & Gynecology; Visit Provider Obstetrics & Gynecology
PROC: 10D00Z1 Extraction of Products of Conception, Low, Open Approach (ICD-10-PCS; CPT 59514; principal; 2025-02-22 20:15)
DX: O14.14 Severe pre-eclampsia complicating childbirth (principal); O24.420 Gestational diabetes mellitus in childbirth, diet controlled; O35.BXX0 Maternal care for other (suspected) fetal abnormality and damage, fetal cardiac anomalies, not applicable or unspecified; O99.214 Obesity complicating childbirth; Z3A.36 36 weeks gestation of pregnancy; Z37.0 Single live birth; Z90.49 Acquired absence of other specified parts of digestive tract; Z87.19 Personal history of other diseases of the digestive system; Z88.1 Allergy status to other antibiotic agents
CPT/HCPCS: 36415; 59025; 80053; 81001; 82570; 83615; 83735; 84156; 84550; 85025; 85384; 86703; 86762; 86780; 86850; 86900; 86901; 87340; 87491; 87591; 87661; 87811; J0689; J1650; J1885; J2210; J2274; J2371; J2405; J2590; J3010; J3475; J3490; J7120; P9045; A9270; J2270

== ENCOUNTER 2025-03-08 14:02 | Outpatient (AMB) | payer BC, SELFPAY ==
--- NOTE | 2025-03-08 14:09 | AMBOBPPN_ITS ---
Vital Signs 03/08/25 14:10 Height 1.52 m Height Method Stated Weight 85.786 kg Weight Measurement Method Standing Scale BMI 37.1 BP 137/88 H Blood Pressure Source Automatic Cuff Blood Pressure Location Left Upper Arm Position Sitting Respiration 16 Pulse 111 H Pulse Source Monitor Temp 97.2 F Temp Source Oral Pulse Oximetry (%) 98 Oxygen Delivery Method Room Air Allergies/Home Meds Allergies & Medications Allergies ciprofloxacin Allergy (Severe, Verified 03/08/25 14:11) ITICHING AND HIVES Medication Reconciliation folic acid 0.8 mg capsule 0.8 mg PO QDAY 11/30/24 [History Confirmed 03/08/25] breast pump #1 ea 02/05/25 [Rx Confirmed 03/08/25] nifedipine 30 mg tablet,extended release 24 hr 60 mg (2 x 30 mg) PO BID 30 days #120 tabs 02/25/25 [Rx Confirmed 03/08/25] vits no.126-ferrous fum 28 mg iron-folic acid 800 mcg tablet (Classic ) 1 tab PO QDAY #90 tabs 03/08/25 [Rx] Intake Visit Data Collection New Patient or Established: Established Patient (seen at [facility] within 3 years) Reason for Visit:: 2-week post visit Seen by Clinical Staff ONLY (RN/MA): No 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 Do You Feel Safe at Home: Yes Authorities Contacted: N/A PCP or OBGYN visit in last 3 months: Yes Date of Last PCP or OBGYN visit: 02/25/25 Hx Now: No Are you currently on any form of Control: No Pain Present Currently: No Pain Scale Used: [place]/Numerical Pain scale:: 0 Smoking Status Smoking Status: Never smoker 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 At 36-6/7 weeks EGA. Other Relevant History: Chronic hypertension Questionnaires Covid-19 Vaccine Questionnaire Has patient been vacinated for Covid-19 Have you been vacinated for Covid-19: Yes Social History Living Situation History Marital Status: (Has a ) Lives With: Family Housing: House Tobacco History Smoking Status: Never smoker Second Hand Smoke Exposure: No Alcohol History Alcohol Intake: Former Alcohol Intake Frequency: holidays/special occasions only Substance Use History Substance Use: no Domestic Abuse History Do You Feel Safe at Home: Yes EPDS - PP Depression Screening [place] Pospartum Depression Screen I have been able to laugh and see the funny side of things: (0) As much as I always could I have looked forward with enjoyment to things: (0) As much as I ever did I have blamed myself unnecessarily when things went wrong: (0) No, never I have been anxious or worried for no good reason: (0) No, not at all I have felt scared or panicky for no very good reason: (0) No, not at all Things have been getting on top of me: (0) No, I have been coping as well as ever I have been so unhappy that I have had difficulty sleeping: (0) No, not at all I have felt sad or miserable: (0) No, not at all I have been so unhappy that I have been crying: (0) No, never The thought of harming myself has occurred to me: (0) Never Total Score: EPDS Score: Referral is indicated for score of 9 or more, suicidal, or if provider believes patient is depressed regardless of score.: 0 EPDS completed yes Care OB Visit Log OB Flowsheet Initial Weight: Not Recorded Date -?-?-?-?-?-?-?-?-?-?-?-?- EGA Weight BP Alb Glu CTX Pres Fundal ht FHR Mov Dilation Station Effacement Hx Notes Visit Note 09/13/24 -?-?-?-?-?-?-?-?-?-?-?-?- 13w 5d 91.399 kg 129/83 175 active OB New visit. IVF . Labs pending 10/15/24 -?-?-?-?-?-?-?-?-?-?-?-?- 18w 2d 93.667 kg 126/88 145 active Martha Stuart, 39 y/o at 19w0d gestation following IVF in [place], presents for routine visit. 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 Subchorionic hemorrhage from early now resolved. Denies CTX/LOF/VB; reports good FM. FHR 138 bpm. Blood type A+, Ab screen negative, Hgb 11.8, plt 311,000. Rubella immune, OB labs normal. Plan: Follow-up in 4 weeks at 24w for GT T and review anatomy scan results (pending call from [employer]?[facility]). Reassurance and supportive care for sciatica and neck symptoms: rest, neck ROM, warm/cold compress. Continue routine care and safety counseling. 11/15/24 -?-?-?-?-?-?-?-?-?-?-?-?- 22w 5d 94.574 kg 141/97 155 active 39yo @22w5d, IVF, good FM, ongoing cervical radiculopathy with hand/arm pain, FHT 155?160 bpm. Plan: 1hr glucose today, anatomy scan pending insurance, neck exercises, consider disability leave, PT and MRI , f/u in 2 weeks. 11/30/24 -?-?-?-?-?-?-?-?-?-?-?-?- 24w 6d 94.461 kg 132/84 occasional cephalic 24 142 active at 24w6d via IVF, elevated 1hr GTT 177, likely GDM. Has carpal tunnel, on disability. FHR 142, good FM. Plan: Start home glucose checks (fasting <100, 1hr post-meal <140), supplies to pharmacy. Anatomy scan 12/24, echo 12/31. F/u in 2w for glucose log, 4w for routine care. Printed records per release. 12/18/24 -?-?-?-?-?-?-?-?-?-?-?-?- 27w 3d 95.481 kg 132/90 absent unknown 25 158 active 27w3d here for routine visit. IVF , diet-controlled GDM with BG <100 fasting, occasional postprandial spikes with sweets. No CTX/LOF/VB, reports good FM. FHR 158. Plan: Continue BG monitoring, no meds. Emphasize protein/veggies before carbs, switch to diet soda, walk post meals. U/S 12/24, echo 01/07, f/u after 12/30. Delivery 39w?KEVIN. C/S if breech, otherwise pt to choose mode. 01/08/25 -?-?-?-?-?-?-?-?-?-?-?-?- 30w 3d 95.935 kg 132/89 absent transverse 30 active fetus active. denies leaking,bleeding, contractions. patient desire elective c/s. reports compliance with GDM diet, sugars at goal. c/o swelling of hands, deneis PIH complaints f/u with OB NV. discuss fkc bid. discuss PTL s/s. decrease salty foods. increas veggies and protein. hydrate. Urine culture to lab for c/o dysuria 01/22/25 -?-?-?-?-?-?-?-?-?-?-?-?- 32w 3d 95.368 kg 133/86 occasional breech 32 active - Experiencing pain since 1 AM today - Constant back pain, attributed to pr essure - Tightening sensations, possibly cont ractions - Frequency not specified, but noted as not bad - Discomfort and difficulty moving - Pain when stretching, particularly in upper area - Patient is scheduled for on January 31 due to breech presentation Patient reports contractions and back pa in. Reports good FM. Denies BELTRE, VC, and epigastric pain. - Patient to proceed to 4[facility] floor of [facility] for monitoring and evaluation - Nurses to be notified of patient's arr ival - Patient to be monitored and rechecked after 2 hours to assess for labor progression - If labor is progressing, patient may d eliver today - If not delivering today, scheduled C-s ection on January 31 at 12:30 PM (patient to arrive at 10:00 AM) - No food, drink, or medications after m idnight the night before 02/12/25 -?-?-?-?-?-?-?-?-?-?-?-?- 35w 3d 97.069 kg 143/98 absent breech 35 a ctive - Martha Stuart is a 1 para 0 female at 35 weeks and 3 days gestation, presenting with severely elevated blood pressure. - Today's blood pressure is 173/131 mmHg . - Patient has been experiencing signific ant blood pressure spikes. - No reported symptoms: - Denies headaches - Denies visual symptoms - Denies contractions, cramping, or le aking - Reports active movement - Patient confirmed desire for primary - Sent in to Labor & Delivery for comprehensive pre-eclampsia evaluation - Serial blood pressure monitoring - Complete pre-eclampsia workup - Confirm primary preference w ith patient - Continue monitoring until definitive m anagement determined - If blood pressure remains severely loly vated, prepare for potential immediate delivery 02/21/25 -?-?-?-?-?-?-?-?-?-?-?-?- 36w 5d 95.765 kg 162/105 absent breech 36 145 active No contractions, LOF, VB and reports good FM. Denies BELTRE, VC, and epigastric pain. - Martha Stuart is a female wi th a history of IVF , presenting with elevated blood pressure consistent with preeclampsia without severe features. - Blood pressure was measured at 160 mmH g systolic today, indicating preeclampsia without severe features. - Patient stopped taking aspirin at 34 w eeks as previously advised by her IVF doctor. - No reported symptoms of headaches or f eeling unwell. - Patient instructed to be cautious of changes in movements. - Deliver at 37 weeks, scheduled for Tuesday at 7:30 AM - Restart labetalol 200 mg twice daily, or switch to Procardia XL once daily - Check-in at 5:30 AM on Tuesday for selina truong; NPO after 10 PM the night before - Blood pressure check tomorrow at 3 PM after starting Procardia - Monitor for movements, headaches , or feeling unwell; come to hospital if needed - No further appointments scheduled exce pt for tomorrow's blood pressure check KEVIN Calculator Estimated Delivery Date Method Current WG Current Estimate 03/16/25 LMP (Certain) 38w 6d Other Estimates 03/12/25 Ultrasound #1 39w 3d 03/16/25 Ultrasound #2 38w 6d HPI Interval History: The patient is a 40-year-old -1-0-1 status post primary for preeclampsia at 36 6/7 weeks. Patient is doing quite well today. She had elevated blood pressures postop. She was originally started on Procardia and then labetalol was added. She dropped her blood pressure a lot with the labetalol so this was discontinued. Patient is currently on Procardia XL 60 twice daily and feels good. Her blood pressure today is 137/88. Patient denies fevers chills she is voiding normally her pain is controlled with oral pain medication she would like a refill on her vitamins. Patient is breast- feeding. She is in a same-sex relationship and her is taking care of their daughter today who the patient states is doing quite well. She denies headaches, heavy vaginal bleeding or depression. No changes in vision. Was or delivery considered high risk: Yes Delivery type: Was labor induced: no Gestational age at delivery (weeks): 36 Delivery date: 02/22/25 Delivering provider: Dr. Myers Delivery complications: No Is patient : Yes Is patient sexually active: No Contraception planned: IVF . Same-sex relationship. No contraceptive needed. Exam Narrative Physical exam: Incision clean dry and intact once Dermabond dressing removed. Fundus is firm nontender she has no edema or erythema of her lower extremities. General Limitations: no limitations General Appearance: alert, in no apparent distress, comfortable, cooperative, healthy appearing and well groomed Office Procedures O[facility] Clinic LOC & Office Proc's Nursing/Assessment Patient Status: Established Patient OB Clinic Nursing Assessment: Medication Reconciliation, Update PMH in EMR and Vital Signs OB Clinic Coordination of Care: Education Complex Pt/Fam, Consent,records obtained, informed consent, Results/Orders obtained and Staff clarify orders Established Patient Charge Established Patient Point Assignment: 70 Established Patient Point Charge: EP Level 2 (40-75) Assessment & Plan Diagnosis / Problem List (1) Routine Follow-Up: Plan: Follow-up in 4 weeks for a visit. (2) delivery delivered: Status: Acute Plan: Postop week #2. Discharge instructions reviewed including no heavy lifting intercourse tampons or douching x 4-week. No heavy exercise x 4 weeks. (3) Pre-eclampsia added to pre-existing hypertension: Status: Acute Plan: Doing well on Procardia XL 60 twice daily. Patient will check blood pressures at home and call with her results. I expect her blood pressure to start normalizing and we will decrease her nifedipine to 30mg twice a day than 30mg daily then off her meds. Care Reviewed delivery summary and any complications: Yes Uterus involuted to: 12 weeks size Perineal / incision healing noted: Yes Screened for depression: Yes Depression counseling provided: No Discussed family planning & contraception: No Contraception planned: IVF . Same-sex relationship. No contraceptive needed. Counseling on safe resumption of sexual activity: No Counseling on gradual excercise: Yes Discussed and concerns (describe), provided support: Yes Referred to framing specialist: No Counseled on good nutrition, hydration, and self care: Yes Reviewed vaccine status: No Chronic & current problems reconciled on problem list: No Infant care discussed; questions answered: feeding and sleep (FP) Tobacco Smoking Status: Never smoker ([employer]) Gender: female Date of delivery: 02/22/25 Route of delivery: section Delivering provider: Dr. Myers Order: barboza Delivery outcome: liveborn Other delivery details: done at 36-6/7 weeks for severe preeclampsia Interim details: no feeding problems and nursing Interim complaints: none [place] concerns: none [place] score: 0
[2025-03-08 14:10] VITALS: BP 137/88; PULSE 111; RESP 16; TEMP 36.2; O2SAT 98; BMI 37.1
== END 2025-03-08 14:21 | disposition home or self-care (01) ==
LOC: HODSOBC 14:02
PROVIDERS: Supervising Provider Obstetrics & Gynecology; Visit Provider Obstetrics & Gynecology
DX: Z39.2 Encounter for routine postpartum follow-up (principal); Z39.1 Encounter for care and examination of lactating mother; O11.5 Pre-existing hypertension with pre-eclampsia, complicating the puerperium; Z79.899 Other long term (current) drug therapy; Z88.1 Allergy status to other antibiotic agents
CPT/HCPCS: 99212; G0463

== ENCOUNTER 2025-04-10 11:26 | Outpatient (AMB) | payer BC, SELFPAY ==
--- NOTE | 2025-04-10 11:29 | AMB.OBPP ---
Vital Signs 04/10/25 11:30 Height 1.52 m Height Method Stated Weight 88.564 kg Weight Measurement Method Standing Scale BMI 38.3 BP 125/85 H Blood Pressure Source Automatic Cuff Blood Pressure Location Left Upper Arm Position Sitting Respiration 18 Pulse 79 Pulse Source Monitor Temp 97.2 F Temp Source Oral Pulse Oximetry (%) 98 Oxygen Delivery Method Room Air Allergies/Home Meds Allergies & Medications Allergies ciprofloxacin Allergy (Severe, Verified 04/10/25 11:31) ITICHING AND HIVES Medication Reconciliation folic acid 0.8 mg capsule 0.8 mg PO QDAY 11/30/24 [History Confirmed 04/10/25] breast pump #1 ea 02/05/25 [Rx Confirmed 04/10/25] vits no.126-ferrous fum 28 mg iron-folic acid 800 mcg tablet (Classic ) 1 tab PO QDAY #90 tabs 03/08/25 [Rx Confirmed 04/10/25] Intake Visit Data Collection New Patient or Established: Established Patient (seen at [facility] within 3 years) Reason for Visit:: Seen by Clinical Staff ONLY (RN/MA): No Computing Tutor Required: No Do You Feel Safe at Home: Yes Authorities Contacted: N/A PCP or OBGYN visit in last 3 months: Yes Date of Last PCP or OBGYN visit: 03/08/25 Hx Now: Yes Are you currently on any form of Control: No Pain Present Currently: No Pain Scale Used: [place]brook/Numerical Pain scale:: 0 Smoking Status Smoking Status: Never smoker Immunizations Flu Vaccine in the Last 12 Months: No Flu Vaccine Exclusion Criteria: No Exclusion Criteria 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: Past Medical History Past Medical History: No Hx Neurological Disorders, Yes Hx Breast Cancer (paternal grandmother), Yes Hx Cardiac Disorders (mother has brain aneurism), Yes Hx Hypertension (father, sister, self), No Hx Blood Disorders, No Hx Anemia, No Hx Gastrointestinal Disorders, No Hx Renal Disease, No Hx Diabetes Mellitus Type 1 and No Hx Diabetes Mellitus Type 2 Questionnaires Covid-19 Vaccine Questionnaire Has patient been vacinated for Covid-19 Have you been vacinated for Covid-19: No Social History Living Situation History Marital Status: Single Lives With: Family Housing: House Tobacco History Smoking Status: Never smoker Second Hand Smoke Exposure: No Alcohol History Alcohol Intake: Former Alcohol Intake Frequency: holidays/special occasions only Substance Use History Substance Use: no Domestic Abuse History Do You Feel Safe at Home: Yes EPDS - PP Depression Screening [place] Pospartum Depression Screen I have been able to laugh and see the funny side of things: (0) As much as I always could I have looked forward with enjoyment to things: (0) As much as I ever did I have blamed myself unnecessarily when things went wrong: (0) No, never I have been anxious or worried for no good reason: (0) No, not at all I have felt scared or panicky for no very good reason: (0) No, not at all Things have been getting on top of me: (0) No, I have been coping as well as ever I have been so unhappy that I have had difficulty sleeping: (0) No, not at all I have felt sad or miserable: (0) No, not at all I have been so unhappy that I have been crying: (0) No, never The thought of harming myself has occurred to me: (0) Never Total Score: EPDS Score: Referral is indicated for score of 9 or more, suicidal, or if provider believes patient is depressed regardless of score.: 0 EPDS completed yes HPI Interval History: Martha Stuart presents for a visit approximately 6 weeks after section delivery on February 22, 2025, with a history of gestational hypertension with superimposed preeclampsia and IVF . She reports several ongoing concerns including mood changes, persistent numbness in her hands, blood pressure management issues, and headaches. The patient describes experiencing depression, noting that her recently returned to work and she is trying to manage on her own. She reports having limited help, with only herself and her available for support, as all her family is in [place]. Her mother was able to assist for the first two weeks but then had to return to work. She has a history of depression and was in therapy in 2019. She continues to experience numbness in her hands, particularly when holding the baby's head, causing her whole hand to go numb. She was previously told this could persist for up to a year. The numbness appears to be related to positioning and holding activities. Regarding her blood pressure management, she reports not being as consistent with taking her medication twice daily as prescribed, focusing more on morning doses rather than evening doses. She has been experiencing frequent headaches lately, describing them as really bad and wondering if they might be related to sleep issues or weather-related sinus problems. She also reports having a cough at home. The patient is currently on maternity leave with a planned return date of May 17 and is considering extending her leave until June 17. Her baby is doing well according to her report. She has a history of section on February 22, 2025. The patient has been taking blood pressure medication but has not been as good taking it twice a day, focusing on morning doses rather than evening doses. She is a female with an obstetric history of G1 T0 L1. 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 She is currently on maternity leave and considering extending her leave. ROS: Positive for headaches, cough, numbness in hands, and depression symptoms. Exam General General Appearance: alert, in no apparent distress and healthy appearing Head Head exam: atraumatic Neck Neck exam: Present normal inspection and trachea midline Chest Chest inspection: Present normal inspection and symmetric chest wall rise External exam: Present normal external exam; Absent tenderness Neuro Neurological exam: Present oriented X3 Psych Psychiatric exam: Present normal affect and normal mood Office Procedures OBC Clinic LOC & Office Proc's Nursing/Assessment Patient Status: Established Patient OB Clinic Nursing Assessment: Medication Reconciliation, Update PMH in EMR and Vital Signs OB Clinic Coordination of Care: Consent,records obtained, informed consent, Education Simp Pt/Fam, Lab and Imaging orders, Results/Orders obtained and Staff clarify orders Special Needs: Heart tones Established Patient Charge Established Patient Point Assignment: 110 Established Patient Point Charge: EP Level 3 (80-115) Assessment & Plan Diagnosis / Problem List (1) Routine Follow-Up: Plan Depression: - Patient reports current depression with history of depression in the past. - Experiencing difficulty managing with returning to work and limited family support. - Appears to be normal emotional response in early period. Plan: - Incorporate holistic interventions including sleep hygiene and morning sunlight exposure. - Initiate therapy through primary care provider Jaimie Paul at [facility]. - If symptoms persist beyond three months or holistic interventions are ineffective, consider medication treatment. - Schedule appointment for mid-May. Hand Numbness : - Persistent numbness in hands, particularly when holding baby's head. - Symptoms suggest carpal tunnel syndrome with possible cervical spine involvement. Plan: - Switch sides frequently when holding baby. - Perform neck exercises. - Avoid sleeping on high pillow. - Apply heat compress. - Symptoms may persist up to one year . Gestational Hypertension with Preeclampsia: - History of gestational hypertension with superimposed preeclampsia. - Currently on antihypertensive medication with poor compliance to twice daily dosing. - Current blood pressure acceptable. Plan: - Consider tapering to once daily dosing given current acceptable blood pressure readings. - Trial off medication for 2-3 days if blood pressure remains below 140/90. - Continue blood pressure monitoring at home. - Contact provider if feeling unwell or elevated readings. Maternity Leave Extension: - Current return to work date May 17. - Requesting extension of maternity leave. Plan: - Extend maternity leave until June 17. - Provide work letter through [employer] by tomorrow. (FP) Tobacco Smoking Status: Never smoker
[2025-04-10 11:30] VITALS: BP 125/85; PULSE 79; RESP 18; TEMP 36.2; O2SAT 98; BMI 38.3
== END 2025-04-10 11:50 | disposition home or self-care (01) ==
LOC: HODSOBC 11:26
PROVIDERS: Supervising Provider Obstetrics & Gynecology; Visit Provider Obstetrics & Gynecology
DX: Z39.2 Encounter for routine postpartum follow-up (principal); O99.345 Other mental disorders complicating the puerperium; F53.0 Postpartum depression; O90.89 Other complications of the puerperium, not elsewhere classified; R20.0 Anesthesia of skin; O13.5 Gestational [pregnancy-induced] hypertension without significant proteinuria, complicating the puerperium; Z91.148 Patient's other noncompliance with medication regimen for other reason; Z88.1 Allergy status to other antibiotic agents
CPT/HCPCS: 99213; G0463

== ENCOUNTER 2025-05-27 10:38 | Outpatient (AMB) | payer BC, SELFPAY ==
[2025-05-27 10:54] VITALS: BP 141/89; PULSE 88; RESP 18; TEMP 36.9; O2SAT 95; BMI 38.0
--- NOTE | 2025-05-27 10:54 | AMB.OBPP ---
Vital Signs 05/27/25 10:54 Height 1.52 m Height Method Stated Weight 87.77 kg Weight Measurement Method Standing Scale BMI 38.0 BP 141/89 H Blood Pressure Source Automatic Cuff Blood Pressure Location Right Upper Arm Position Sitting Respiration 18 Pulse 88 Pulse Source Monitor Temp 98.4 F Temp Source Temporal Artery Scan Pulse Oximetry (%) 95 Oxygen Delivery Method Room Air Allergies/Home Meds Allergies & Medications Allergies ciprofloxacin Allergy (Severe, Verified 05/27/25 10:55) ITICHING AND HIVES Medication Reconciliation folic acid 0.8 mg capsule 0.8 mg PO QDAY 11/30/24 [History Confirmed 05/27/25] breast pump #1 ea 02/05/25 [Rx Confirmed 05/27/25] vits no.126-ferrous fum 28 mg iron-folic acid 800 mcg tablet (Classic ) 1 tab PO QDAY #90 tabs 03/08/25 [Rx Confirmed 05/27/25] escitalopram oxalate 20 mg tablet 20 mg PO QDAY 30 days #30 tabs 05/27/25 [Rx] Intake Visit Data Collection New Patient or Established: Established Patient (seen at [facility] within 3 years) Reason for Visit:: Seen by Clinical Staff ONLY (RN/MA): No Flower Grower Required: No Do You Feel Safe at Home: Yes Authorities Contacted: N/A PCP or OBGYN visit in last 3 months: Yes Date of Last PCP or OBGYN visit: 04/10/25 Hx Now: No Are you currently on any form of Control: No Pain Present Currently: No Pain Scale Used: [place]aca-[place]brook/Numerical Pain scale:: 0 Smoking Status Smoking Status: Never smoker Immunizations Flu Vaccine in the Last 12 Months: No Flu Vaccine Exclusion Criteria: No 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: Past Medical History Past Medical History: No Hx Neurological Disorders, Yes Hx Breast Cancer (paternal grandmother), Yes Hx Cardiac Disorders (mother has brain aneurism), Yes Hx Hypertension (father, sister, self), No Hx Blood Disorders, No Hx Anemia, No Hx Gastrointestinal Disorders, No Hx Renal Disease, No Hx Diabetes Mellitus Type 1 and No Hx Diabetes Mellitus Type 2 Questionnaires Covid-19 Vaccine Questionnaire Has patient been vacinated for Covid-19 Have you been vacinated for Covid-19: No Social History Living Situation History Marital Status: Lives With: Family Housing: House Tobacco History Smoking Status: Never smoker Second Hand Smoke Exposure: No Alcohol History Alcohol Intake: Former Alcohol Intake Frequency: holidays/special occasions only Substance Use History Substance Use: no Domestic Abuse History Do You Feel Safe at Home: Yes EPDS - PP Depression Screening [place] Pospartum Depression Screen I have been able to laugh and see the funny side of things: (0) As much as I always could I have looked forward with enjoyment to things: (0) As much as I ever did I have blamed myself unnecessarily when things went wrong: (0) No, never I have been anxious or worried for no good reason: (0) No, not at all I have felt scared or panicky for no very good reason: (0) No, not at all Things have been getting on top of me: (0) No, I have been coping as well as ever I have been so unhappy that I have had difficulty sleeping: (0) No, not at all I have felt sad or miserable: (0) No, not at all I have been so unhappy that I have been crying: (0) No, never The thought of harming myself has occurred to me: (0) Never EPDS completed yes HPI Interval History: Martha Stuart presents for a appointment following a delivery on February 22, 2025. Her course has been complicated by depression, bilateral carpal tunnel, hypertension, preeclampsia, and recurrent headaches. The patient reports feeling very irritable and is seeking treatment for her depression. She expresses interest in starting therapy and medication management. Regarding sleep patterns, she reports sleeping well at night but not during the day. She has a history of taking bupropion in 2020 but did not like the side effects from that medication. She is currently and has concerns about medication safety while nursing. The patient is also dealing with work-related issues, as her insurance has requested extensive documentation for time off work and wants to conduct a [id number] review with their doctor. She is currently employed and on work leave. ROS: Positive for recurrent headaches and irritability. 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 Exam General General Appearance: alert, in no apparent distress and healthy appearing Head Head exam: atraumatic Neck Neck exam: Present normal inspection and trachea midline Chest Chest inspection: Present normal inspection and symmetric chest wall rise External exam: Present normal external exam; Absent tenderness Neuro Neurological exam: Present oriented X3 Psych Psychiatric exam: Present normal affect and normal mood Office Procedures OBC Clinic LOC & Office Proc's Nursing/Assessment Patient Status: Established Patient OB Clinic Nursing Assessment: Medication Reconciliation, Update PMH in EMR and Vital Signs OB Clinic Coordination of Care: Complex Care and Chronic Disease 1-5, Education Complex Pt/Fam, Consent,records obtained, informed consent, Lab and Imaging orders, Results/Orders obtained and Staff clarify orders Established Patient Charge Established Patient Point Assignment: 110 Established Patient Point Charge: EP Level 3 (80-115) Antepartum Initial or Follow-up Antepartum Follow up Visit: Yes Assessment & Plan Diagnosis / Problem List (1) depression: Status: Acute Plan Depression: - Patient reports feeling very irritable and seeking treatment for depression. - Previously tried bupropion in 2020 but did not tolerate side effects. - Currently with good nighttime sleep but poor daytime sleep. Plan: - Start Lexapro for more subtle side effects and safety. - Prescription to be sent to [facility]. - Initiate therapy referral: ? Patient to call insurance to determine covered providers. ? Notify clinic for referral creation. ? Multiple therapy options available in [place]. - Follow-up appointment scheduled for early June. Work Disability Extension: - Insurance has requested comprehensive documentation for work time off extension. - Insurance company wants [id number] review with their physician. - Current behavioral health treatment initiation provides additional justification. Plan: - [id number] call scheduled with insurance physician on Tuesday. - Extension to be granted after behavioral health referral completion and medication initiation. - Patient to call back with insurance response regarding therapy referral.
== END 2025-05-27 11:08 | disposition home or self-care (01) ==
LOC: HODSOBC 10:38
PROVIDERS: Supervising Provider Obstetrics & Gynecology; Visit Provider Obstetrics & Gynecology
DX: O99.345 Other mental disorders complicating the puerperium (principal); F53.0 Postpartum depression; Z88.1 Allergy status to other antibiotic agents
CPT/HCPCS: 99213; Z1034; G0463

== ENCOUNTER 2025-06-11 10:24 | Outpatient (AMB) | payer BC, SELFPAY ==
[2025-06-11 10:43] VITALS: BP 136/88; PULSE 77; RESP 16; TEMP 36.3; O2SAT 96; BMI 38.7
--- NOTE | 2025-06-11 10:43 | GYNCLNT_ITS ---
Vital Signs 06/11/25 10:43 Height 1.52 m Height Method Stated Weight 89.358 kg Weight Measurement Method Standing Scale BMI 38.7 BP 136/88 H Blood Pressure Source Automatic Cuff Blood Pressure Location Left Upper Arm Position Sitting Respiration 16 Pulse 77 Pulse Source Monitor Temp 97.4 F Temp Source Oral Pulse Oximetry (%) 96 Oxygen Delivery Method Room Air Allergies/Home Meds Allergies & Medications Allergies ciprofloxacin Allergy (Severe, Verified 06/11/25 10:44) ITICHING AND HIVES Medication Reconciliation folic acid 0.8 mg capsule 0.8 mg PO QDAY 11/30/24 [History Confirmed 06/11/25] breast pump #1 ea 02/05/25 [Rx Confirmed 06/11/25] vits no.126-ferrous fum 28 mg iron-folic acid 800 mcg tablet (Classic ) 1 tab PO QDAY #90 tabs 03/08/25 [Rx Confirmed 06/11/25] escitalopram oxalate 20 mg tablet 20 mg PO QDAY 30 days #30 tabs 05/27/25 [Rx Confirmed 06/11/25] Intake Visit Data Collection New Patient or Established: Established Patient (seen at [facility] within 3 years) Reason for Visit:: BLOOD PRESSURE CHECK Seen by Clinical Staff ONLY (RN/MA): No It Consultant Required: No Do You Feel Safe at Home: Yes Authorities Contacted: N/A PCP or OBGYN visit in last 3 months: Yes Hx Now: No Are you currently on any form of Control: Yes Last menstrual period: 06/01/25 Pain Present Currently: No Pain Scale Used: [place]/Numerical Pain scale:: 0 Smoking Status Smoking Status: Never smoker Immunizations Flu Vaccine in the Last 12 Months: Yes Flu Vaccine Exclusion Criteria: Already Received New Account Interviewer history New Account Interviewer History Menstrual regularity: regular Flow: normal Monthly: Yes How many days does period last: 7 Age at menarche: 17 Currently sexually active: Yes 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 1. Little interest or pleasure in doing things: not at all 2. Feeling down, depressed, or hopeless: not at all Total score: 0 PHQ-9 3. Trouble falling or staying asleep, or sleeping too much: Not at all 4. Feeling tired or having little energy: Not at all 5. Poor appetite or overeating: Not at all 6. Feeling bad about yourself - or that you are a failure or have let yourself or your family down: Not at all 7. Trouble concentrating on things, such as reading the newspaper or watching television: Not at all 8. Moving or speaking so slowly that other people could have noticed? - Or the opposite - being so fidgety or restless that you have been moving around a lot more than usual: not at all 9. Thoughts that you would be better off or of hurting yourself in some way: Not at all Total score: 0 Source: Developed by Drs. Az Melara, Ankita Wheeler, William Alves and colleagues, with an educational robert from [employer]. Depression screen completed yes Social History Living Situation History Lives With: Family Housing: House Tobacco History Smoking Status: Never smoker Second Hand Smoke Exposure: No Alcohol History Alcohol Intake: Former Alcohol Intake Frequency: holidays/special occasions only Substance Use History Substance Use: no Domestic Abuse History Do You Feel Safe at Home: Yes History of Present Illness HPI Narrative Martha Stuart presents for blood pressure check and follow-up care in the period. She was previously taken off blood pressure medication at her last appointment but continues to have elevated blood pressure, with a reading of 141/89 at the last visit and 136/88 today, meeting criteria for stage one hypertension. The patient reports that [facility] never called her back despite waiting multiple days for contact regarding work-related matters. She has been prescribed Lexapro for depression and reports challenges with accessing behavioral health services through her insurance, [employer], noting initial difficulties finding available therapists and confusion about provider networks, though she eventually received a list of providers after a 3- day delay. She has a history of recent delivery and is in the period. The patient has been taking Lexapro, which takes a few weeks to optimally kick in. Her blood pressure medicine was discontinued at the last appointment. The patient expresses concerns about accessing appropriate behavioral health care and work-related communication issues. 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 Exam General General Appearance: alert, in no apparent distress and healthy appearing Head Head exam: atraumatic Neck Neck exam: Present normal inspection and trachea midline Chest Chest inspection: Present normal inspection and symmetric chest wall rise External exam: Present normal external exam; Absent tenderness Neuro Neurological exam: Present oriented X3 Psych Psychiatric exam: Present normal affect and normal mood Office Procedures OBC Clinic LOC & Office Proc's Nursing/Assessment Patient Status: Established Patient OB Clinic Nursing Assessment: Medication Reconciliation, Update PMH in EMR and Vital Signs OB Clinic Coordination of Care: Complex Care and Chronic Disease 1-5, Consent,records obtained, informed consent, Education Simp Pt/Fam, 1 Ins Authorization, Lab and Imaging orders, Results/Orders obtained and Staff clarify orders Established Patient Charge Established Patient Point Assignment: 120 Established Patient Point Charge: EP Level 4 (120-155) Assessment & Plan Diagnosis / Problem List (1) Essential hypertension: Status: Acute (2) depression: Status: Acute Plan Hypertension: - Stage 1 hypertension with current reading 136/88. - Previous reading was 141/89, elevated despite discontinuation of antihyper tensive medication. - Blood pressure remains elevated but not severely high. Plan: - Lifestyle modifications: reduce salt and sodium intake, avoid processed foods, increase water consumption. - Blood pressure recheck with primary care physician Dr. Jaimie Paul in 2 months. Depression: - Currently on Lexapro for depression management. - Medication recently initiated and requires time to reach optimal therapeutic effect. Plan: - Continue Lexapro (medication takes 2-3 weeks to optimally kick in and patient will start seeing benefits by 2-3 weeks). - Behavioral health referral sent to patient's specified provider office; patient to call office to expedite appointment scheduling. - Supportive measures: encourage walking and adequate sleep when possible. - Work extension letter provided for continued leave. - Return appointment scheduled for August 11 for depression follow- up, with adjustments as needed.
== END 2025-06-11 10:50 | disposition home or self-care (01) ==
LOC: HODSOBC 10:24
PROVIDERS: Supervising Provider Obstetrics & Gynecology; Visit Provider Obstetrics & Gynecology
DX: O16.5 Unspecified maternal hypertension, complicating the puerperium (principal); O99.345 Other mental disorders complicating the puerperium; F53.0 Postpartum depression; Z82.49 Family history of ischemic heart disease and other diseases of the circulatory system
CPT/HCPCS: 99214; G0463